=== PATIENT | male | born 1975 | race Two or more races ===

== ENCOUNTER 2017-07-30 09:06 | Emergency (ER) | payer BC ==
[2017-07-30 11:16] LABS: Hematocrit 40 % (42-52); Hemoglobin 13.1 g/dl (14.0-18.0); Mean Corpuscular HGB Conc 33 g/dl (31-36); Mean Corpuscular Hemoglobin 26 pg (27-31); Mean Corpuscular Volume 80 fL (80-94); Mean Platelet Volume 8 um3 (7.4-10.4); Red Cell Distribution Width 18 % (10.5-15); White Blood Count 7.5 10^3/ul (3.5-10.8)
[2017-07-30 11:32] LABS: Albumin 4.4 g/dL (3.2-5.2); C Reactive Protein 5.55 mg/L (< 5.00); Calcium 9.4 mg/dL (8.6-10.3); EGFR African American 97.5 (>60); EGFR Non-African American 75.8 (>60); Globulin 2.7 g/dL (2-4); Potassium 4.3 mmol/L (3.5-5.0); Total Bilirubin 0.2 mg/dL (0.2-1.0); Total Protein 7.1 g/dL (6.4-8.9)
[2017-07-30] MEDS ORDERED: Morphine INJ* 4 MG/ML 1 ML CARPUJECT IV ONE (11:56)
[2017-07-30] MEDS ORDERED: Ondansetron INJ* 2 MG/ML VIAL IV ONE (11:56)
[2017-07-30] MEDS ORDERED: Iohexol 300* (CONTRAST) 10 ML SDV IV ONE (13:47)
[2017-07-30 14:39] VITALS: BP 109/71
--- NOTE | 2017-07-30 14:42 | RAD ---
CLINICAL HISTORY: Hematochezia COMPARISON: Noncontrast CT abdomen pelvis dated October 15, 2011 TECHNIQUE: Contrast enhanced CT examination of the abdomen and pelvis from the lung bases through the initial tuberosities. The patient received 100 mL Omnipaque 300 intravenously prior to imaging.The patient received oral contrast as well prior to imaging. FINDINGS: VISUALIZED LUNG BASES: The visualized lung bases are grossly clear. There is no pleural effusion. ABDOMEN AND PELVIS: The liver, spleen, pancreas and adrenal glands are grossly normal in appearance. The gallbladder is normal. The kidneys are normal in appearance without focal mass, calcification or signs of hydronephrosis. Oral contrast has progressed to the descending colon. The proximal small bowel is top normal in diameter measuring up to 2.9 cm (coronal image 44). The small bowel becomes smaller as it progresses more distally but there is no definite focal transition point or pathologically dilated loops of bowel. The partially gas and contrast-filled appendix measures just over 4 mm in diameter (coronal image 41). There are scattered rectosigmoid diverticula but none exhibit focal inflammatory change. There is no retroperitoneal lymphadenopathy. Scattered mesenteric lymph nodes are seen measuring up to 9 mm in short axis diameter (coronal image 42) but none are pathologically enlarged. Top normal left inguinal lymph nodes are seen measuring up to 1 cm in short axis diameter (axial image 79). The pelvic viscera is normal in appearance. The abdominal aorta and iliac arteries are normal in course and diameter. There are no sinister bone lesions. IMPRESSION: 1. Top normal dilatation of proximal loops of small bowel without pathologic dilatation or focal transition point. This is in the presence of mild mesenteric lymphadenopathy. Mild infectious or inflammatory bowel disease could BE considered as a diagnostic possibility. 2. Top normal left inguinal lymph nodes are noted uncertain clinical significance. Please correlate to physical examination.
[2017-07-30 15:14] LABS: Urine Bilirubin Negative (Negative); Urine Glucose Negative (Negative); Urine Nitrite Negative (Negative)
[2017-07-30 15:44] LABS: Hematocrit 37 % (42-52); Hemoglobin 12.2 g/dl (14.0-18.0); Mean Corpuscular HGB Conc 33 g/dl (31-36); Mean Corpuscular Hemoglobin 26 pg (27-31); Mean Corpuscular Volume 79 fL (80-94); Mean Platelet Volume 9 um3 (7.4-10.4); Red Blood Count 4.71 10^6/ul (4.0-5.4); Red Cell Distribution Width 18 % (10.5-15); White Blood Count 7.9 10^3/ul (3.5-10.8)
[2017-07-30] MEDS ORDERED: NS 0.9% 1000 ML* 1,000 ML IV ONE (17:14)
[2017-07-30] MEDS ORDERED: HYDROcodone/ACETAMIN 5-325 MG* 1 TAB PO ONE (17:28)
--- NOTE | 2017-08-02 12:22 | ED ---
Santhosh Valerio Thomas, scribed for Yuri Becerra MD on 07/30/17 at 1249 . GI/ HPI - HPI Summary HPI Summary: The patient is a 41 y/o M c/o abd pain that began two days ago but worsened this AM at 03:00. He rates the pain 8/10 and he describes it as sharp. He also c /o bloody stools characterized as some BRB blood but also some clots. He describes his stools as completely blood and not bloody streaks. He had two episodes of vomiting this AM at about 04:00. He additionally c/o dizziness. He denies testicular pain and urinary symptoms. He reports recent prior sick contacts. PMHx: anxiety. PSHx: none. SHx: current smoker, occasional drinking. He is accompanied by his fiance. 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 - fiance is present Onset/Duration: Started Days Ago - onset of abd pain two days ago, Still Present , Worse Since - this AM at 04:00 Timing: Constant Severity: Severe Pain Intensity: 8 Pain Characteristics: Sharp Associated Signs and Symptoms: Positive: Dizziness, Vomiting - two episodes this AM, Blood w/Stool - BRB and clots, Other: - Abd pain onset two days ago but worse this AM at 04:00; NEGATIVE: urinary symptoms, testicular pain Aggravating Factor(s): Nothing Alleviating Factor(s): Nothing - Allergy/Home Medications Allergies/Adverse Reactions: Allergies Allergy/AdvReac Type Severity Reaction Status Date / Time Codeine Allergy Severe See Comment Verified 09/29/14 19:32 PMH/Surg Hx/FS Hx/Imm Hx Previously Healthy: No Endocrine/Hematology History: Denies: Hx Diabetes, Hx Thyroid Disease Cardiovascular History: Denies: Hx Hypertension, Hx Pacemaker/ICD Respiratory History: Denies: Hx Asthma, Hx Chronic Obstructive Pulmonary Disease (COPD) GI History: Reports: Hx Ulcer - possiability for peptic ulcers Sensory History: Denies: Hx Hearing Aid Psychiatric History: Reports: Hx Anxiety, Hx Panic Disorder - ANXIETY - Surgical History Surgery Procedure, Year, and Place: None Infectious Disease History: No Infectious Disease History: Denies: Hx Hepatitis, Hx Human Immunodeficiency Virus (HIV), Traveled Outside the [place] in Last 30 Days - Family History Known Family History: Positive: Other - Ulcerative colitis Negative: Hypertension, Diabetes - Social History Alcohol Use: Occasionally Hx Substance Use: No Substance Use Type: Reports: None Hx Tobacco Use: Yes Smoking Status (MU): Heavy Every Day Tobacco Smoker Type: Cigarettes Review of Systems Negative: Fever, Chills Negative: Erythema - eyes Negative: Sore Throat Negative: Chest Pain Negative: Shortness Of Breath, Cough Positive: Abdominal Pain - onset two days ago but worse this AM, Vomiting - two episodes of vomiting this AM at 04:00, Nausea, Other - Blood with stool onset this AM at 03:00 Positive: no symptoms reported. Negative: dysuria, hematuria, other - NEGATIVE : testicular pain Negative: Rash Neurological: Other - Dizziness All Other Systems Reviewed And Are Negative: Yes Physical Exam - Summary Physical Exam Summary: Constitutional: Well-developed, Well-nourished, Alert. (-) Distressed Skin: Warm, Dry HENT: Normocephalic; Atraumatic Eyes: Conjunctiva normal Neck: Musculoskeletal ROM normal neck. (-) JVD, (-) Stridor, (-) Tracheal deviation Cardio: Rhythm regular, rate normal, Heart sounds normal; Intact distal pulses; The pedal pulses are 2+ and symmetric. Radial pulses are 2+ and symmetric. (-) Murmur Pulmonary/Chest wall: Effort normal. (-) Respiratory distress, (-) Wheezes, (-) Rales Abd: There is mild RLQ and LLQ tenderness. Soft, (-) Distension, (-) Guarding, ( -) Rebound Musculoskeletal: (-) Edema Lymph: (-) Cervical adenopathy Neuro: Alert, Oriented x3 Psych: Mood and affect Normal Triage Information Reviewed: Yes Vital Signs On Initial Exam: Initial Vitals Temp Pulse Resp BP Pulse Ox 98.2 F 96 20 126/79 97 07/30/17 09:11 07/30/17 09:11 07/30/17 09:11 07/30/17 09:11 07/30/17 09:11 Vital Signs Reviewed: Yes Diagnostics - Vital Signs Vital Signs Temp Pulse Resp BP Pulse Ox 07/30/17 12:10 15 07/30/17 11:30 124/77 07/30/17 11:29 82 99 07/30/17 11:25 80 99 10/10/17 11:24 126/75 07/30/17 10:56 98.3 F 82 16 118/79 100 07/30/17 09:11 98.2 F 96 20 126/79 97 - Laboratory Lab Results: Lab Results 07/30/17 07/30/17 Range/Units 11:04 11:04 WBC 7.5 (3.5-10.8) 10^3/ul RBC 5.00 (4.0-5.4) 10^6/ul Hgb 13.1 L (14.0-18.0) g/dl Hct 40 L (42-52) % MCV 80 (80-94) fL MCH 26 L (27-31) pg MCHC 33 (31-36) g/dl RDW 18 H (10.5-15) % Plt Count 295 (150-450) 10^3/ul MPV 8 (7.4-10.4) um3 Neut % (Auto) 54.3 (38-83) % Lymph % (Auto) 36.6 (25-47) % [place] % (Auto) 7.5 (1-9) % Eos % (Auto) 1.3 (0-6) % Baso % (Auto) 0.3 (0-2) % Absolute Neuts (auto) 4.1 (1.5-7.7) 10^3/ul Absolute Lymphs (auto) 2.7 (1.0-4.8) 10^3/ul Absolute Monos (auto) 0.6 (0-0.8) 10^3/ul Absolute Eos (auto) 0.1 (0-0.6) 10^3/ul Absolute Basos (auto) 0 (0-0.2) 10^3/ul Absolute Nucleated RBC 0 10^3/ul Nucleated RBC % 0 Blood Type O Positive Antibody Screen Pending Result Diagrams: 07/30/17 15:30 07/30/17 11:04 Lab Statement: Any lab studies that have been ordered have been reviewed, and results considered in the medical decision making process. - CT CT Abd/Pel CT Interpretation: No Acute Changes - 1. Top normal dilatation of proximal loops of small bowel without pathologic dilatation or focal transition point. This is in the presence of mild mesenteric lymphadenopathy. Mild infectious or inflammatory bowel disease could BE considered as a diagnostic possibility. 2. Top normal left inguinal lymph nodes are noted uncertain clinical significance. Please correlate to physical examination. ED physician has reviewed this report and agrees. CT Interpretation Completed By: Radiologist Re-Evaluation - Re-Evaluation First Eval Re-Evaluation Time: 14:10 Change: Unchanged Comment: When I went to see the patient, he was in CT. Second Eval Re-Evaluation Time: 17:51 Comment: The patient says that he has a FHx of ulcerative in his sister since she was 2 years of age. I told him about the plans for admission d/t inability to see GI as an outpatient basis. He tells me that he will think about it. GIGU Course/Dx - Course Assessment/Plan: The patient is a 41 y/o M c/o abd pain that began two days ago but worsened this AM at 03:00. He rates the pain 8/10 and he describes it as sharp. He also c/o bloody stools that began this AM at 03:00 characterized as BRB blood as well as some clots. He describes stool composed completely of blood rather than only bloody streaks. He had two episodes of vomiting this AM at about 04:00. He additionally c/o dizziness. He denies testicular pain and urinary symptoms. He reports recent prior sick contacts. PMHx: anxiety. PSHx: none. SHx: current smoker, occasional drinking. He is accompanied by his fiance. In the ED course the patient was given Hargill, morphine, IV fluids, and Zofran. Bloodwork was obtained and it shows Hgb 13.1, Hct 40, and CRP 5.55. UA was negative. CT Abd/Pel shows 1. Top normal dilatation of proximal loops of small bowel without pathologic dilatation or. focal transition point. This is in the presence of mild mesenteric lymphadenopathy. Mild. infectious or inflammatory bowel disease could BE considered as a diagnostic possibility. 2. Top normal left inguinal lymph nodes are noted uncertain clinical significance. Please. correlate to physical examination. ED physician has reviewed this report and agrees. I consulted at 17:[address] Quinonez GI, who says that he recommends observation at the hospital for trending CBCs because it will be difficult to see the patient as an outpatient. The patient decided to leave [place]. Despite the patient leaving [place], I am giving him a prescription for Flagyl and Hargill. The Flagyl is prescribed in the case that the patients symptoms are secondary to colitis, ulcerative colitis, or infectious diarrhea. - Diagnoses Provider Diagnoses: Abdominal pain - Physician Notifications Discussed Care Of Patient With: Delmar Quinonez Time Discussed With Above Provider: 17:15 Instructed by Provider To: Other - I consulted at 17:[address] Quinonez, GI, who says that he recommends observation at the hospital for trending CBCs because it will be difficult to see the patient as an outpatient. Discharge - Discharge Plan Condition: Fair Disposition: AGAINST MEDICAL ADVICE Prescriptions: HYDROcodone/ACETAMIN 5-325 MG* [Hargill 5-325 TAB*] 1 tab PO Q6H PRN #12 tab MDD 0 PRN Reason: Pain - Moderate To Severe Metronidazole [Flagyl 500 MG TAB] 500 mg PO TID #30 tab Referrals: Delmar Quinonez MD [Medical Doctor] - As Soon As Possible The documentation as recorded by the Santhosh tong Thomas accurately reflects the service I personally performed and the decisions made by me, Yuri Becerra MD.
== END 2017-07-30 18:13 | disposition left against medical advice (07) ==
LOC: ED 09:06
DX: R10.9 Unspecified abdominal pain (principal); R42 Dizziness and giddiness; R11.10 Vomiting, unspecified; F17.210 Nicotine dependence, cigarettes, uncomplicated
CPT/HCPCS: 36415; 74177; 80053; 81003; 83605; 83690; 85025; 85027; 86140; 86850; 86900; 86901; 96374; 96375; 99283; J2270; J2405; Q9967

== ENCOUNTER 2017-11-25 09:08 | Emergency (ER) | payer BC ==
[2017-11-25] MEDS ORDERED: NS 0.9% 1000 ML* 1,000 ML IV ONE (09:40)
[2017-11-25] MEDS ORDERED: Morphine INJ* 4 MG/ML 1 ML CARPUJECT IV ONE ×2 (09:40→11:47)
[2017-11-25 10:18] LABS: Hematocrit 30 % (42-52); Hemoglobin 8.9 g/dl (14.0-18.0); Mean Corpuscular HGB Conc 29 g/dl (31-36); Mean Corpuscular Hemoglobin 18 pg (27-31); Mean Corpuscular Volume 60 fL (80-94); Mean Platelet Volume 8 um3 (7.4-10.4); Platelet Count 567 10^3/ul (150-450); Red Blood Count 5.02 10^6/ul (4.0-5.4); Red Cell Distribution Width 18 % (10.5-15); White Blood Count 7.9 10^3/ul (3.5-10.8)
[2017-11-25 10:23] LABS: EGFR Non-African American 35.2 (>60)
[2017-11-25 10:35] LABS: Urine Appearance Clear; Urine Blood Negative (Negative); Urine Color Straw; Urine Ketones Negative (Negative); Urine Protein Negative (Negative); Urine Specific Gravity 1.004 (1.010-1.030); Urine Urobilinogen Negative (Negative)
[2017-11-25] MEDS ORDERED: Iodixanol* (CONTRAST) 320 MG/ML 100 ML SDV IV ONE ×2 (10:42)
[2017-11-25 10:53] LABS: ABS Basophils 0 10^3/ul (0-0.2); ABS Eosinophils 0.2 10^3/ul (0-0.6); ABS Lymphocytes 2.7 10^3/ul (1.0-4.8); ABS Monocytes 0.6 10^3/ul (0-0.8); ABS Neutrophils 4.4 10^3/ul (1.5-7.7); ABS Nucleated RBC 0 10^3/ul; Eosinophil % 2.6 % (0-6); Lymphocyte % 34.2 % (25-47); Nucleated Red Blood Cells % 0.1
[2017-11-25 11:26] LABS: Monocytes % 14 % (0-13)
--- NOTE | 2017-11-25 12:23 | RAD ---
INDICATION: Abdominal pain COMPARISON: CT abdomen and pelvis July 30, 2017; CT October 15, 2011 TECHNIQUE: Axial source images were obtained from the hemidiaphragms to the symphysis pubis following administration of oral and intravenous contrast. 100 mL Visipaque 320 was utilized. Coronal and sagittal reconstructed images were acquired. Lung bases: The lung bases are clear. Liver: The liver is normal in size. There are no masses. There is no ductal dilatation. Gallbladder: There are no calcified gallstones. There is no evidence of wall thickening or pericholecystic fluid. Spleen: The spleen is normal in size. There are no masses. Pancreas: There is no focal pancreatic mass or ductal dilatation. Adrenal glands: There is no evidence of adrenal mass. Kidneys: The kidneys are normal in size and position. There are prompt nephrograms and there is prompt excretion bilaterally. There are no renal parenchymal masses. There is no evidence of nephrolithiasis. Adenopathy: There is no evidence of adenopathy by size criteria. Fluid collections: There are no free or localized fluid collections. Vessels:There are no significant atherosclerotic changes involving the aorta. There is no focal aneurysm. The iliac vessels are normal in caliber. The IVC appears normal. GI tract: There are no acute CT bowel findings. There is no obstruction. The stomach and small bowel appear unchanged with atonic appearing proximal jejunal loops without evidence of identifiable zone of transition. This is stable dating back to 2010. The lower GI tract is normal. The cecum, ileocecal valve, and terminal ileum appear normal. The appendix is visualized and appear normal. Pelvic organs: The prostate and seminal vesicles appear normal Bladder: There are no bladder masses. Abdominal and pelvic soft tissues: The extraperitoneal abdominal and pelvic soft tissues appear normal.. Osseous structures: There are no acute osseous findings. Other: None IMPRESSION: ACUTE CT FINDINGS. NO MASS OR INFLAMMATORY CHANGES. STABLE ATONIC APPEARING JEJUNAL LOOPS UNCHANGED FROM PRIOR IMAGING
[2017-11-25] MEDS ORDERED: Nicotine Inhaler* 10 MG AMP INH PRN (13:55)
[2017-11-25] MEDS ORDERED: Mouth Piece, Nicotine* 1 EACH CARTRIDGE INH PRN (13:55)
[2017-11-25] MEDS ORDERED: Ferrous Sulfate TAB* 325 MG PO SCH (14:00)
[2017-11-25] MEDS ORDERED: Acetaminophen TAB* 325 MG PO PRN (14:08)
[2017-11-25] MEDS ORDERED: NS 0.9% 1000 ML* 1,000 ML IV SCH (14:15)
--- NOTE | 2017-11-25 14:15 | PN ---
Subjective Date of Service: 11/25/17 Interval History: ADMISSION HISTORY AND PHYSICAL EXAM: Allergies Allergy/AdvReac Type Severity Reaction Status Date / Time MS Codeine [Codeine] Allergy Severe See Comment Verified 08/21/17 16:03 Home Medications Medication Instructions Recorded Confirmed Type Escitalopram (NF) [Lexapro 10 mg 15 mg PO DAILY 11/25/17 11/25/17 History (NF)] Gabapentin CAP(*) [Neurontin 300 300 mg PO QID PRN 11/25/17 11/25/17 History CAP(*)] Multivitamins/Minerals TAB* [Thera 1 tab PO DAILY 11/25/17 11/25/17 History M Plus TAB*] HPI: The patient was in his usual state of health until 7 PM 11/24 when he developed lower abdominal pain At 9 PM he started having rectal passages of blood. He had a brown BM this AM with blood on it. No N,V. He has been going to the gym more often recently and sometimes uses ibuprofen 400 mg for pain, also uses it for chronic back pain, and using it more lately than in the past. ROS: 12 point ROS done with no additional positive findings. Family History: Findings - Parents, 6 sibs all [employer]. Social History: Findings - Single. 5 children. 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 Mary Keene is his SDM. Smoker. No alcohol abuse. Past Medical History: Findings - Hospitalized for peumonia age 4. Objective Active Medications: Device (Nicotine Mouth Piece*) 1 each INH .USE WITH NICOTROL PRN PRN Reason: CRAVING Escitalopram Oxalate (Lexapro (Nf)) 15 mg PO DAILY CORINNE Ferrous Sulfate (Ferrous Sulfate Tab*) 325 mg PO DAILY CORINNE Sodium Chloride (Ns 0.9% 1000 Ml*) 1,000 mls @ 100 mls/hr IV PER RATE CORINNE Nicotine (Nicotine Inhaler*) 10 mg INH Q2H PRN PRN Reason: CRAVING Vital Signs - 8 hr 11/25/17 11/25/17 11/25/17 09:13 10:03 10:06 Temperature 98.8 F Pulse Rate 101 Respiratory 20 18 Rate Blood Pressure 167/89 141/93 (mmHg) O2 Sat by Pulse 100 Oximetry 11/25/17 11/25/17 11/25/17 10:07 11:26 11:27 Temperature Pulse Rate 93 84 Respiratory Rate Blood Pressure 147/82 (mmHg) O2 Sat by Pulse 98 98 Oximetry 11/25/17 11/25/17 11:30 12:26 Temperature Pulse Rate 85 Respiratory 16 Rate Blood Pressure 142/76 (mmHg) O2 Sat by Pulse 98 Oximetry Oxygen Devices in Use Now: None Appearance: Alert, partly up on ED stretcher. In good spirits. Looks comfortable. Eyes: No Scleral Icterus Ears/Nose/Mouth/Throat: Clear Oropharnyx, Mucous Membranes Moist Neck: NL Appearance and Movements; NL JVP, No Thyroid Enlargement, Masses Respiratory: Symmetrical Chest Expansion and Respiratory Effort, Clear to Auscultation, Clear to Percussion Cardiovascular: NL Sounds; No Murmurs; No JVD, RRR, No Edema, - Abdominal: No Hepatosplenomegaly, - - minimal lower abd tenderness BL. Nl BS. Soft. Extremities: No Edema, No Clubbing, Cyanosis, - Skin: No Rash or Ulcers, No Nodules or Sclerosis, - Neurological: Alert and Oriented x 3, NL Sensation Result Diagrams: 11/25/17 10:00 11/25/17 10:00 Microbiology and Other Data: Microbiology 11/25/17 09:40 Stool Occult Blood (MILLER) - Final Stool Assess/Plan/Problems-Billing Assessment: - Patient Problems (1) GI bleed Current Visit: Yes Status: Acute Code(s): K92.2 - GASTROINTESTINAL HEMORRHAGE, UNSPECIFIED SNOMED Code(s): 62053106 Comment: Likely due to hemorrhoids. I spoke to Dr. Hermosillo who will see the patient in the AM. (2) Iron deficiency anemia Current Visit: Yes Status: Acute Code(s): D50.9 - IRON DEFICIENCY ANEMIA, UNSPECIFIED SNOMED Code(s): 10358244 Comment: Start FeSO4 325 mg daily. CBC 11/26. (3) Elevated serum creatinine Current Visit: Yes Status: Acute Code(s): R79.89 - OTHER SPECIFIED ABNORMAL FINDINGS OF BLOOD CHEMISTRY SNOMED Code(s): 958086189 Comment: Suspect due to NSAIDS. IV NSS at 100 ml/hr, BMP 2/. Pt advisd to NOT use any NSAIDS. (4) Tobacco abuse Current Visit: Yes Status: Acute Code(s): Z72.0 - TOBACCO USE SNOMED Code( s): 481907314 Comment: Pt advised to quit smoking and avoid second hand smoke. Nicotine inhaler PRN ordered. Status and Disposition: Patient signed out AMA while in the ED.
[2017-11-25] MEDS ORDERED: Omeprazole CAP* 20 MG PO SCH (14:30)
[2017-11-25 15:10] VITALS: BP 0/0
[2017-11-26] MEDS ORDERED: CMCS Escitalopram (NF) 5 MG TAB PO SCH (09:00)
--- NOTE | 2017-11-26 09:28 | ED ---
Michael Valerio Angela, scribed for Chandler Concepcion MD on 11/25/17 at 0941 . Abdominal Pain/Male - HPI Summary HPI Summary: This pt is a 41 y/o male presenting to [facility] c/o lower abd pain and bloody stools since last night. Pt reports his symptoms have become worse overnight. He describes his abd pain as "knives on my abd." Pt rates his pain currently 9/ 10 in severity. This morning pt had nausea and generalized weakness. Denies constipation, vomiting. Pt was told he might have peptic ulcers but it was not confirmed. Pt is currently on Lexapro for anxiety. - History of Current Complaint Chief Complaint: EDAbdPain Stated Complaint: ABD PAIN/RECTAL BLEEDING Time Seen by Provider: 11/25/17 09:34 Hx Obtained From: Patient Onset/Duration: Lasting Hours, Still Present Timing: Lasting Hours Severity Currently: Severe Pain Intensity: 9 Pain Scale Used: 0-10 Numeric Location: Suprapubic Radiates: No Character: Sharp - "like knives" Aggravating Factor(s): Nothing Alleviating Factor(s): Nothing Associated Signs And Symptoms: Positive: Blood in Stool, Nausea, Other - weakness. Negative: Constipation, Vomiting, Diarrhea - Allergies/Home Medications Allergies/Adverse Reactions: Allergies Allergy/AdvReac Type Severity Reaction Status Date / Time codeine Allergy Severe See Comment Verified 11/25/17 14:14 Home Medications: Home Medications Escitalopram (NF) [Lexapro 10 mg (NF)] 15 mg PO DAILY 11/25/17 [History Confirmed 11/25/17] Gabapentin CAP(*) [Neurontin 300 CAP(*)] 300 mg PO QID PRN 11/25/17 [History Confirmed 11/25/17] Multivitamins/Minerals TAB* [Thera M Plus TAB*] 1 tab PO DAILY 11/25/17 [ History Confirmed 11/25/17] PMH/Surg Hx/FS Hx/Imm Hx Endocrine/Hematology History: Denies: Hx Diabetes, Hx Thyroid Disease Cardiovascular History: Denies: Hx Hypertension, Hx Pacemaker/ICD Respiratory History: Denies: Hx Asthma, Hx Chronic Obstructive Pulmonary Disease (COPD) GI History: Reports: Hx Ulcer - possiability for peptic ulcers Sensory History: Denies: Hx Hearing Aid Psychiatric History: Reports: Hx Anxiety, Hx Panic Disorder - ANXIETY - Surgical History Surgery Procedure, Year, and Place: None Infectious Disease History: No Infectious Disease History: Denies: Hx Hepatitis, Hx Human Immunodeficiency Virus (HIV), Traveled Outside the [place] in Last 30 Days - Family History Known Family History: Positive: Diabetes - grandmother, Other - Ulcerative colitis Negative: Hypertension - Social History Alcohol Use: Occasionally Hx Substance Use: No Substance Use Type: Reports: None Hx Tobacco Use: Yes Smoking Status (MU): Heavy Every Day Tobacco Smoker Type: Cigarettes Review of Systems Negative: Fever, Chills Gastrointestinal: Other - bloody stools Positive: Abdominal Pain, Nausea. Negative: Vomiting, Diarrhea, Other - constipation Positive: Weakness - generalized All Other Systems Reviewed And Are Negative: Yes Physical Exam - Summary Physical Exam Summary: VITAL SIGNS: Reviewed. GENERAL: Patient is a well-developed and nourished male who is lying comfortable in the stretcher. Patient is not in any acute respiratory distress. HEAD AND FACE: Normocephalic and atraumatic. EYES: PERRLA, EOMI x 2, No injected conjunctiva. EARS: Hearing grossly intact. Ear canals and tympanic membranes are WNL. MOUTH: Oropharynx within normal limits. NECK: Supple, trachea is midline, no adenopathy, no JVD. CHEST: Symmetric, no tenderness at palpation LUNGS: Clear to auscultation bilaterally. No wheezing or crackles. CVS: RRR, S1 and S2 present, no murmurs or gallops appreciated. ABDOMEN: Soft. Lower abdominal tenderness with guarding. No rebound. No signs of distention. Positive bowel sounds. No masses palpated. No abdominal bruit or pulsations. Rectal Exam: Multiple external hemorrhoids. Normal sphincter tone. No gross blood. EXTREMITIES: FROM in all major joints, no edema, no cyanosis or clubbing. NEURO: Alert and oriented x 3. No acute neurological deficits. Speech is normal. SKIN: Dry and warm Triage Information Reviewed: Yes Vital Signs On Initial Exam: Initial Vitals Temp Pulse Resp BP Pulse Ox 98.8 F 101 20 167/89 100 11/25/17 09:13 11/25/17 09:13 11/25/17 09:13 11/25/17 09:13 11/25/17 09:13 Vital Signs Reviewed: Yes Diagnostics - Vital Signs Vital Signs Temp Pulse Resp BP Pulse Ox 11/25/17 09:13 98.8 F 101 20 167/89 100 - Laboratory Lab Results: Lab Results 11/25/17 11/25/17 11/25/17 Range/Units 10:00 10:00 10:00 WBC 7.9 (3.5-10.8) 10^3/ul RBC 5.02 (4.0-5.4) 10^6/ul Hgb 8.9 L (14.0-18.0) g/dl Hct 30 L (42-52) % MCV 60 L (80-94) fL MCH 18 L (27-31) pg MCHC 29 L (31-36) g/dl RDW 18 H (10.5-15) % Plt Count 567 H (150-450) 10^3/ul MPV 8 (7.4-10.4) um3 Neut % (Auto) 55.2 (38-83) % Lymph % (Auto) 34.2 (25-47) % Nolan % (Auto) 7.4 (1-9) % Eos % (Auto) 2.6 (0-6) % Baso % (Auto) 0.6 (0-2) % Absolute Neuts (auto) 4.4 (1.5-7.7) 10^3/ul Absolute Lymphs (auto) 2.7 (1.0-4.8) 10^3/ul Absolute Monos (auto) 0.6 (0-0.8) 10^3/ul Absolute Eos (auto) 0.2 (0-0.6) 10^3/ul Absolute Basos (auto) 0 (0-0.2) 10^3/ul Absolute Nucleated RBC 0 10^3/ul Neutrophils % 56 (38-83) % Lymphocytes % 27 (25-47) % Monocytes % 14 H (0-13) % Eosinophils % 3 (0-6) % Nucleated RBC % 0.1 Normal RBC Morphology Not Reportable Polychromasia 1+ Hypochromasia 2+ Anisocytosis 1+ Microcytosis 3+ Elliptocytes 1+ Hem Pathologist Commnt Pending Sodium 135 (133-145) mmol/L Potassium 4.3 (3.5-5.0) mmol/L Chloride 103 (101-111) mmol/L Carbon Dioxide 27 (22-32) mmol/L Anion Gap 5 (2-11) mmol/L BUN 17 (6-24) mg/dL Creatinine 2.08 H (0.67-1.17) mg/dL Est GFR ( Amer) 45.3 (>60) Est GFR (Non-Af Amer) 35.2 (>60) BUN/Creatinine Ratio 8.2 (8-20) Glucose 133 H (70-100) mg/dL Lactic Acid 1.3 (0.5-2.0) mmol/L Calcium 9.6 (8.6-10.3) mg/dL Total Bilirubin 0.20 (0.2-1.0) mg/dL AST 20 (13-39) U/L ALT 25 (7-52) U/L Alkaline Phosphatase 35 (34-104) U/L C-Reactive Protein < 1.00 (< 5.00) mg/L Total Protein 6.4 (6.4-8.9) g/dL Albumin 4.1 (3.2-5.2) g/dL Globulin 2.3 (2-4) g/dL Albumin/Globulin Ratio 1.8 (1-3) Lipase 54 (11.0-82.0) U/L Urine Color Urine Appearance Urine pH (5-9) Ur Specific [place] (1.010-1.030) Urine Protein (Negative) Urine Ketones (Negative) Urine Blood (Negative) Urine Nitrate (Negative) Urine Bilirubin (Negative) Urine Urobilinogen (Negative) Ur Leukocyte Esterase (Negative) Urine Glucose (Negative) 11/25/17 Range/Units 10:25 WBC (3.5-10.8) 10^3/ul RBC (4.0-5.4) 10^6/ul Hgb (14.0-18.0) g/dl Hct (42-52) % MCV (80-94) fL MCH (27-31) pg MCHC (31-36) g/dl RDW (10.5-15) % Plt Count (150-450) 10^3/ul MPV (7.4-10.4) um3 Neut % (Auto) (38-83) % Lymph % (Auto) (25-47) % Nolan % (Auto) (1-9) % Eos % (Auto) (0-6) % Baso % (Auto) (0-2) % Absolute Neuts (auto) (1.5-7.7) 10^3/ul Absolute Lymphs (auto) (1.0-4.8) 10^3/ul Absolute Monos (auto) (0-0.8) 10^3/ul Absolute Eos (auto) (0-0.6) 10^3/ul Absolute Basos (auto) (0-0.2) 10^3/ul Absolute Nucleated RBC 10^3/ul Neutrophils % (38-83) % Lymphocytes % (25-47) % Monocytes % (0-13) % Eosinophils % (0-6) % Nucleated RBC % Normal RBC Morphology Polychromasia Hypochromasia Anisocytosis Microcytosis Elliptocytes Hem Pathologist Commnt Sodium (133-145) mmol/L Potassium (3.5-5.0) mmol/L Chloride (101-111) mmol/L Carbon Dioxide (22-32) mmol/L Anion Gap (2-11) mmol/L BUN (6-24) mg/dL Creatinine (0.67-1.17) mg/dL Est GFR ( Amer) (>60) Est GFR (Non-Af Amer) (>60) BUN/Creatinine Ratio (8-20) Glucose (70-100) mg/dL Lactic Acid (0.5-2.0) mmol/L Calcium (8.6-10.3) mg/dL Total Bilirubin (0.2-1.0) mg/dL AST (13-39) U/L ALT (7-52) U/L Alkaline Phosphatase (34-104) U/L C-Reactive Protein (< 5.00) mg/L Total Protein (6.4-8.9) g/dL Albumin (3.2-5.2) g/dL Globulin (2-4) g/dL Albumin/Globulin Ratio (1-3) Lipase (11.0-82.0) U/L Urine Color Straw Urine Appearance Clear Urine pH 7.0 (5-9) Ur Specific [place] 1.004 L (1.010-1.030) Urine Protein Negative (Negative) Urine Ketones Negative (Negative) Urine Blood Negative (Negative) Urine Nitrate Negative (Negative) Urine Bilirubin Negative (Negative) Urine Urobilinogen Negative (Negative) Ur Leukocyte Esterase Negative (Negative) Urine Glucose Negative (Negative) Result Diagrams: 11/25/17 10:00 11/25/17 10:00 Lab Statement: Any lab studies that have been ordered have been reviewed, and results considered in the medical decision making process. - CT CT abdomen/pelvis CT Interpretation: Positive (See Comments) - IMPRESSION: Acute CT findings, no mass or inflammatory changes. 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 Dr. Concepcion has reviewed this radiology report. CT Interpretation Completed By: Radiologist - EKG 09:42 Cardiac Rate: NL EKG Rhythm: Sinus Rhythm - at 90 bpm EKG Interpretation: No ST elevation Re-Evaluation - Re-Evaluation First Eval Re-Evaluation Time: 12:50 Comment: I reviewed the CT results with the pt. Pt reports he is feeling better and his pain has decreased to a 1/10. Abdominal Pain Fem Course/Dx - Course Assessment/Plan: This pt is a 41 y/o male presenting to [facility] c/o lower abd pain and bloody stools since last night. Pt reports his symptoms have become worse overnight. He describes his abd pain as "knives on my abd." Pt rates his pain currently 9/10 in severity. This morning pt had nausea and generalized weakness. Denies constipation, vomiting. Pt was told he might have peptic ulcers but it was not confirmed. Pt is currently on Lexapro for anxiety. Test results show slight anemia, hemoglobin of 8.9, hematocrit of 30, which is new for this pt. The pt also has acute renal failure, creatinine of 2.08. Urinalysis is negative for UTI. Abdomen/Pelvis CT shows acute CT findings, no mass or inflammatory changes. 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 In the ED course, I gave the pt IV fluids and morphine for the pain, but the pt continues to have pain. Therefore I discussed the case with Dr. Garza, hospitalist, who accepted the pt for admission. Before the pt went to the floor, he decided to sign out AMA. I had a long discussion with the pt about the risks and benefits of leaving AMA, however he still decided to sign the form. Pt ambulated out of the ED. - Diagnoses Differential Diagnosis/HQI/PQRI: Appendicitis, Bowel Obstruction, Constipation, Diverticulitis, Renal Colic Provider Diagnoses: Abdominal pain, Acute renal failure, Symptomatic anemia, GI bleed - Provider Notifications Discussed Care Of Patient With: Dino Garza Time Discussed With Above Provider: 12:47 Instructed by Provider To: Other - I discussed pt care with Dr. Garza, hospitalist, who has agreed to admit the pt. Discharge - Discharge Plan Condition: Stable Disposition: AGAINST MEDICAL ADVICE The documentation as recorded by the Michael tong Angela accurately reflects the service I personally performed and the decisions made by , Chandlre Concepcion MD.
== END 2017-11-25 15:08 | disposition left against medical advice (07) ==
LOC: ED 09:08 → UNDOADMOB 13:18 → MED 13:18 → ED 15:08
DX: K92.2 Gastrointestinal hemorrhage, unspecified (principal); D50.9 Iron deficiency anemia, unspecified; R79.89 Other specified abnormal findings of blood chemistry; F17.210 Nicotine dependence, cigarettes, uncomplicated; Z53.21 Procedure and treatment not carried out due to patient leaving prior to being seen by health care provider; Z88.5 Allergy status to narcotic agent
CPT/HCPCS: 36415; 74177; 80053; 81003; 82272; 83605; 83690; 85025; 85060; 86140; 93005; 96360; 96374; 96375; 96376; 99285; J2270; Q9967

== ENCOUNTER 2017-12-23 08:41 | Emergency (ER) | payer BC ==
[2017-12-23] MEDS ORDERED: NS 0.9% 1000 ML* 1,000 ML IV ONE (09:02)
[2017-12-23 09:43] LABS: ABS Basophils 0 10^3/ul (0-0.2); ABS Eosinophils 0.3 10^3/ul (0-0.6); ABS Lymphocytes 1.8 10^3/ul (1.0-4.8); ABS Monocytes 0.4 10^3/ul (0-0.8); ABS Neutrophils 2.8 10^3/ul (1.5-7.7); ABS Nucleated RBC 0 10^3/ul; Eosinophil % 6.2 % (0-6); Hematocrit 35 % (42-52); Lymphocyte % 33.3 % (25-47); Mean Corpuscular HGB Conc 29 g/dl (31-36); Mean Corpuscular Hemoglobin 17 pg (27-31); Mean Corpuscular Volume 59 fL (80-94); Mean Platelet Volume 9 um3 (7.4-10.4); Nucleated Red Blood Cells % 0.1; Platelet Count 486 10^3/ul (150-450); Red Blood Count 5.92 10^6/ul (4.0-5.4); Red Cell Distribution Width 19 % (10.5-15); White Blood Count 5.5 10^3/ul (3.5-10.8)
[2017-12-23 09:47] LABS: Urine Appearance Clear; Urine Blood Negative (Negative); Urine Color Yellow; Urine Ketones Negative (Negative); Urine Protein 1+(30 mg/dL) (Negative); Urine Specific Gravity 1.014 (1.010-1.030); Urine Urobilinogen Negative (Negative)
[2017-12-23 09:52] LABS: EGFR Non-African American 72.3 (>60)
--- NOTE | 2017-12-23 09:56 | RAD ---
CLINICAL HISTORY: Flank pain COMPARISON: November 25, 2017 TECHNIQUE: Multiple contiguous axial CT scans were obtained of the abdomen and pelvis, without intravenous contrast enhancement. Coronal and sagittal multiplanar reformations are submitted for review. Oral contrast was not administered. FINDINGS: The study is limited by the lack of intravenous contrast. This limits evaluation of the solid organs and vasculature. LUNG BASES: The lung bases are clear. LIVER: The liver is normal in shape, size, contour, and attenuation. BILE DUCTS: There is no intrahepatic or extrahepatic biliary dilatation. GALLBLADDER: The gallbladder is normal, without pericholecystic inflammatory change. PANCREAS: The pancreas is normal, without mass or ductal dilatation. SPLEEN: Normal in size and appearance. UPPER GI TRACT: Evaluation of the gastrointestinal tract is limited by incomplete gastric distention. The upper GI tract is unremarkable. SMALL BOWEL AND MESENTERY: The small bowel is normal in contour, course, and caliber. There is no obstruction or dilatation. COLON: The colon is normal in contour, course, caliber. There is no pericolonic inflammatory change. There is a tubular, vermiform, hollow viscus that is blind ending, and originates from the cecum, consistent with a normal appendix. There is no periappendiceal inflammatory change. This is best seen on coronal images 38 through 45. ADRENALS: Normal bilaterally. KIDNEYS: There is a punctate nonobstructing right renal calyceal stone measuring 0.2 cm in size in the lower pole of the right kidney. Elsewhere, there is no hydronephrosis or nephrolithiasis. BLADDER: The bladder is smooth in contour. PELVIC ORGANS: The prostate gland is normal. The seminal vesicles are symmetric. AORTA: The aorta is normal. IVC: Unremarkable LYMPH NODES: There is no lymphadenopathy by size criteria. ABDOMINAL WALL: There is no evidence for abdominal wall hernia. BONES AND SOFT TISSUES: Mild degenerative changes are noted. There is partial lumbarization of the S1 vertebral body. OTHER: None IMPRESSION: PUNCTATE NONOBSTRUCTING RIGHT RENAL CALYCEAL STONE.
[2017-12-23] MEDS ORDERED: Morphine INJ* 4 MG/ML 1 ML SYRINGE (NEW SYRINGE VERSION) IV ONE (10:14)
[2017-12-23 10:31] VITALS: BP 149/85
--- NOTE | 2017-12-24 16:13 | ED ---
Michael Valerio Angela, scribed for Chandler Concepcion MD on 12/23/17 at 0904 . GI/ HPI - HPI Summary HPI Summary: This pt is a 42 y/o male presenting to [facility] c/o bilateral flank pain worsening since yesterday. Pt reports he has had intermittent bilateral flank pain for "a while." He rates his pain 7.5 out of 10 in severity while at rest. Pt notes his pain is aggravated with movement, rating it 10/10 in severity. Pt states he was in the ED for the same symptoms 1 month ago and was going to be admitted but signed out AMA. He notes he was diagnosed with acute renal failure. Pt followed up with his PCP but didn't have repeat blood work done. - History of Current Complaint Chief Complaint: EDUrogenitalProblems Time Seen by Provider: 12/23/17 08:51 Stated Complaint: FLANK PAIN Hx Obtained From: Patient Onset/Duration: Started Weeks Ago, Still Present Timing: Lasting Weeks Severity: Worse Since: - yesterday Current Severity: Severe Pain Intensity: 8 - at rest Location of Pain: Flank - bilateral Associated Signs and Symptoms: Positive: Other: - urinary frequency Aggravating Factor(s): Movement Alleviating Factor(s): Nothing - Allergy/Home Medications Allergies/Adverse Reactions: Allergies Allergy/AdvReac Type Severity Reaction Status Date / Time codeine Allergy Severe See Comment Verified 11/25/17 14:14 Home Medications: Home Medications traZODone TAB* [Desyrel TAB*] 50 mg PO BEDTIME 12/23/17 [History Confirmed 12/23] PMH/Surg Hx/FS Hx/Imm Hx Endocrine/Hematology History: Denies: Hx Diabetes, Hx Thyroid Disease Cardiovascular History: Denies: Hx Hypertension, Hx Pacemaker/ICD Respiratory History: Denies: Hx Asthma, Hx Chronic Obstructive Pulmonary Disease (COPD) GI History: Reports: Hx Ulcer - possiability for peptic ulcers History: Denies: Hx Renal Disease Sensory History: Denies: Hx Hearing Aid Psychiatric History: Reports: Hx Anxiety, Hx Panic Disorder - ANXIETY - Surgical History Surgery Procedure, Year, and Place: None Infectious Disease History: No Infectious Disease History: Denies: Hx Hepatitis, Hx Human Immunodeficiency Virus (HIV), Traveled Outside the [place] in Last 30 Days - Family History Known Family History: Positive: Diabetes - grandmother, Other - Ulcerative colitis Negative: Hypertension - Social History Alcohol Use: Occasionally Hx Substance Use: No Substance Use Type: Reports: None Hx Tobacco Use: Yes Smoking Status (MU): Heavy Every Day Tobacco Smoker Type: Cigarettes Review of Systems Negative: Fever, Chills Eyes: Negative ENT: Negative Cardiovascular: Negative Respiratory: Negative Positive: frequency, flank pain - bilateral All Other Systems Reviewed And Are Negative: Yes Physical Exam - Summary Physical Exam Summary: VITAL SIGNS: Reviewed. GENERAL: Patient is a well-developed and nourished male who is lying comfortable in the stretcher. Patient is not in any acute respiratory distress. HEAD AND FACE: No signs of trauma. No ecchymosis, hematomas or skull depressions. No sinus tenderness. EYES: PERRLA, EOMI x 2, No injected conjunctiva, no nystagmus. EARS: Hearing grossly intact. Ear canals and tympanic membranes are within normal limits. MOUTH: Oropharynx within normal limits. NECK: Supple, trachea is midline, no adenopathy, no JVD, no carotid bruit, no c- spine tenderness, neck with full ROM. CHEST: Symmetric, no tenderness at palpation LUNGS: Clear to auscultation bilaterally. No wheezing or crackles. CVS: Regular rate and rhythm, S1 and S2 present, no murmurs or gallops appreciated. ABDOMEN: Soft. No signs of distention. No rebound no guarding, and no masses palpated. Bowel sounds are normal. Bilateral flank tenderness. EXTREMITIES: FROM in all major joints, no edema, no cyanosis or clubbing. NEURO: Alert and oriented x 3. No acute neurological deficits. Speech is normal and follows commands. SKIN: Dry and warm PSYCH: A little bit anxious and nervous. Triage Information Reviewed: Yes Vital Signs On Initial Exam: Initial Vitals Temp Pulse Resp BP Pulse Ox 98.0 F 109 16 141/76 99 12/23/17 08:43 12/23/17 08:43 12/23/17 08:43 12/23/17 08:43 12/23/17 08:43 Vital Signs Reviewed: Yes Diagnostics - Vital Signs Vital Signs Temp Pulse Resp BP Pulse Ox 12/23/17 08:43 98.0 F 109 16 141/76 99 - Laboratory Result Diagrams: 12/23/17 09:20 12/23/17 09:20 Lab Statement: Any lab studies that have been ordered have been reviewed, and results considered in the medical decision making process. - CT Abdomen/Pelvis CT CT Interpretation: Positive (See Comments) - IMPRESSION: Punctate nonobstructing right renal calyceal stone. Dr. Concepcion has reviewed this radiology report. CT Interpretation Completed By: Radiologist Re-Evaluation - Re-Evaluation First Eval Re-Evaluation Time: 10:27 Comment: I reviewed the CT and lab results with the pt. GIGU Course/Dx - Course Assessment/Plan: This pt is a 42 y/o male presenting to [facility] c/o bilateral flank pain worsening since yesterday. Pt reports he has had intermittent bilateral flank pain for "a while." He rates his pain 7.5 out of 10 in severity while at rest. Pt notes his pain is aggravated with movement, rating it 10/10 in severity. Pt states he was in the ED for the same symptoms 1 month ago and was going to be admitted but signed out AMA. He notes he was diagnosed with acute renal failure. Pt followed up with his PCP but didn't have repeat blood work done. Test results without any significant abnormalities except for chronic microcytic hypochromic anemia possibly secondary to iron deficiency anemia. Urinalysis is negative for UTI. In the ED course the pt was given IV fluids and morphine since the pt has low back pain. Abdomen/Pelvis CT shows punctate nonobstructing right renal calyceal stone. Since there is no abdominal pain and no UTI, the pt will be discharged to home with follow up from his PCP. The pt was given a prescription for ferrous sulfate. Pt is hemodynamically stable, alert and oriented x3. - Diagnoses Provider Diagnoses: Lower back pain, Iron deficiency anemia Discharge - Discharge Plan Condition: Stable Disposition: HOME Prescriptions: Ferrous Sulfate TAB* 325 mg PO DAILY #15 tab Patient Education Materials: Acute Low Back Pain (ED) Forms: *Work Release Referrals: Kim Wilkins NP [Primary Care Provider] - 3 Days Additional Instructions: Please follow up with your primary care provider. RETURN TO THE ED FOR ANY WORSENING SYMPTOMS. The documentation as recorded by the Michael tong Angela accurately reflects the service I personally performed and the decisions made by , Chandler Concepcion MD.
== END 2017-12-23 10:37 | disposition home or self-care (01) ==
LOC: ED 08:41
DX: N20.0 Calculus of kidney (principal); M54.5 Low back pain; D50.9 Iron deficiency anemia, unspecified; Z88.5 Allergy status to narcotic agent
CPT/HCPCS: 36415; 74176; 80053; 80061; 81003; 81015; 82150; 82550; 83690; 83880; 85025; 86140; 87086; 96374; 99282; J2270

== ENCOUNTER 2018-01-06 08:34 | Emergency (ER) | payer BC ==
[2018-01-06] MEDS ORDERED: NS 0.9% 1000 ML* 2,000 ML IV ONE (09:04)
[2018-01-06] MEDS ORDERED: Morphine INJ* 4 MG/ML 1 ML SYRINGE (NEW SYRINGE VERSION) IV ONE (09:05)
[2018-01-06 09:46] LABS: Urine Appearance Clear; Urine Blood Negative (Negative); Urine Color Yellow; Urine Ketones Negative (Negative); Urine Protein 2+(100 mg/dL) (Negative); Urine Specific Gravity 1.016 (1.010-1.030); Urine Urobilinogen Negative (Negative)
[2018-01-06 09:48] LABS: EGFR Non-African American 56.2 (>60)
[2018-01-06] MEDS ORDERED: Iodixanol* (CONTRAST) 320 MG/ML 100 ML SDV IV ONE (10:05)
[2018-01-06 10:11] LABS: Hematocrit 38 % (42-52); Mean Corpuscular HGB Conc 29 g/dl (31-36); Mean Corpuscular Hemoglobin 17 pg (27-31); Mean Corpuscular Volume 58 fL (80-94); Mean Platelet Volume 9 um3 (7.4-10.4); Platelet Count 603 10^3/ul (150-450); Red Blood Count 6.42 10^6/ul (4.0-5.4); Red Cell Distribution Width 20 % (10.5-15); White Blood Count 5.6 10^3/ul (3.5-10.8)
--- NOTE | 2018-01-06 10:33 | ED ---
GI/ HPI - HPI Summary HPI Summary: 42-year-old male presents with abdominal pain for the past 3 days. He states it started as lower back. Pain radiates from his front to his right lower and left lower quadrant. He denies any testicular pain. He denies any fevers. He denies any nausea but admits vomiting. He states he has had a couple dark tarry stools. He has history of blood in his stool due to hemorrhoids. He has a history of anemia. He denies any dizziness or lightheadedness. Denies any chest pain or shortness of breath. He denies any recent illness. Denies any diarrhea. He states he denies any injury to his back. He denies any loss of bowel or bladder. Denies any saddle anesthesia. He denies any flank pain or pain with urination. He has history of kidney stones. He denies any hematuria. He denies any abdominal surgeries. He is not taking his iron. - History of Current Complaint Chief Complaint: EDAbdPain Time Seen by Provider: 01/06/18 08:51 Stated Complaint: ABD PAIN Pain Intensity: 9 - Allergy/Home Medications Allergies/Adverse Reactions: Allergies Allergy/AdvReac Type Severity Reaction Status Date / Time codeine Allergy Severe See Comment Verified 01/06/18 08:43 PMH/Surg Hx/FS Hx/Imm Hx Endocrine/Hematology History: Denies: Hx Diabetes, Hx Thyroid Disease Cardiovascular History: Denies: Hx Hypertension, Hx Pacemaker/ICD Respiratory History: Denies: Hx Asthma, Hx Chronic Obstructive Pulmonary Disease (COPD) GI History: Reports: Hx Ulcer - possiability for peptic ulcers History: Denies: Hx Renal Disease Sensory History: Denies: Hx Hearing Aid Psychiatric History: Reports: Hx Anxiety, Hx Panic Disorder - ANXIETY - Surgical History Surgery Procedure, Year, and Place: None Infectious Disease History: No Infectious Disease History: Denies: Hx Hepatitis, Hx Human Immunodeficiency Virus (HIV), Traveled Outside the [place] in Last 30 Days - Family History Known Family History: Positive: Diabetes - grandmother, Other - Ulcerative colitis Negative: Hypertension - Social History Alcohol Use: Occasionally Hx Substance Use: No Substance Use Type: Reports: None Hx Tobacco Use: Yes Smoking Status (MU): Heavy Every Day Tobacco Smoker Type: Cigarettes Review of Systems Negative: Fever Negative: Chest Pain Negative: Shortness Of Breath Positive: Abdominal Pain, Nausea. Negative: Vomiting All Other Systems Reviewed And Are Negative: Yes Physical Exam Triage Information Reviewed: Yes Vital Signs On Initial Exam: Initial Vitals Temp Pulse Resp BP Pulse Ox 98.6 F 114 22 151/91 100 01/06/18 08:40 01/06/18 08:40 01/06/18 08:40 01/06/18 08:40 01/06/18 08:40 Vital Signs Reviewed: Yes Appearance: Positive: Well-Appearing Skin: Positive: Warm, Dry Head/Face: Positive: Normal Head/Face Inspection Eyes: Positive: Normal, Conjunctiva Clear Respiratory/Lung Sounds: Positive: Clear to Auscultation, Breath Sounds Present Cardiovascular: Positive: Normal, RRR Abdomen Description: Positive: Soft, Other: - tenderness RLQ and LLQ. Negative : CVA Tenderness (R), CVA Tenderness (L) Bowel Sounds: Positive: Present Musculoskeletal: Positive: Normal Neurological: Positive: Normal Psychiatric: Positive: Normal Diagnostics - Vital Signs Vital Signs Temp Pulse Resp BP Pulse Ox 01/06/18 09:30 96 23 140/81 99 01/06/18 09:27 16 01/06/18 09:15 103 137/86 98 01/06/18 09:00 107 20 98 01/06/18 08:52 97.1 F 109 16 147/91 98 01/06/18 08:51 19 01/06/18 08:40 98.6 F 114 22 151/91 100 - Laboratory Lab Results: Lab Results 01/06/18 01/06/18 01/06/18 Range/Units 09:00 09:10 09:10 WBC 5.6 (3.5-10.8) 10^3/ul RBC 6.42 H (4.0-5.4) 10^6/ul Hgb 11.0 L (14.0-18.0) g/dl Hct 38 L (42-52) % MCV 58 L (80-94) fL MCH 17 L (27-31) pg MCHC 29 L (31-36) g/dl RDW 20 H (10.5-15) % Plt Count 603 H D (150-450) 10^3/ul MPV 9 (7.4-10.4) um3 Neut % (Auto) Pending Lymph % (Auto) Pending Blount % (Auto) Pending Eos % (Auto) Pending Baso % (Auto) Pending Absolute Neuts (auto) Pending Absolute Lymphs (auto) Pending Absolute Monos (auto) Pending Absolute Eos (auto) Pending Absolute Basos (auto) Pending Absolute Nucleated RBC Pending Nucleated RBC % Pending Sodium 136 (133-145) mmol/L Potassium 4.3 (3.5-5.0) mmol/L Chloride 101 (101-111) mmol/L Carbon Dioxide 29 (22-32) mmol/L Anion Gap 6 (2-11) mmol/L BUN 13 (6-24) mg/dL Creatinine 1.38 H (0.67-1.17) mg/dL Est GFR ( Amer) 72.3 (>60) Est GFR (Non-Af Amer) 56.2 (>60) BUN/Creatinine Ratio 9.4 (8-20) Glucose 174 H (70-100) mg/dL Calcium 9.8 (8.6-10.3) mg/dL Total Bilirubin 0.40 (0.2-1.0) mg/dL AST 24 (13-39) U/L ALT 24 (7-52) U/L Alkaline Phosphatase 44 (34-104) U/L C-React Prot High Sens 2.65 mg/L Total Protein 7.5 (6.4-8.9) g/dL Albumin 4.6 (3.2-5.2) g/dL Globulin 2.9 (2-4) g/dL Albumin/Globulin Ratio 1.6 (1-3) Lipase 53 (11.0-82.0) U/L Urine Color Yellow Urine Appearance Clear Urine pH 7.0 (5-9) Ur Specific [place] 1.016 (1.010-1.030) Urine Protein 2+(100 mg/dl) A (Negative) Urine Ketones Negative (Negative) Urine Blood Negative (Negative) Urine Nitrate Negative (Negative) Urine Bilirubin Negative (Negative) Urine Urobilinogen Negative (Negative) Ur Leukocyte Esterase Negative (Negative) Urine WBC (Auto) Trace(0-5/hpf) (Absent) Urine RBC (Auto) Trace(0-2/hpf) (Absent) Urine Bacteria Absent (Absent) Urine Glucose Negative (Negative) Result Diagrams: 01/06/18 09:10 01/06/18 09:10 Lab Statement: Any lab studies that have been ordered have been reviewed, and results considered in the medical decision making process. - CT abd CT Interpretation: Positive (See Comments) - IMPRESSION: No abnormal masses or fluid collections are noted. There is circumferential wall thickening of the descending duodenum which was present previously although it is more apparent now that the distended. Direct inspection may BE indicated. Small inguinal lymph nodes are noted. CT Interpretation Completed By: Radiologist JACINTO Course/Dx - Course Course Of Treatment: 42-year-old male presents with abdominal pain for the past 3 days. He states it started as lower back. Pain radiates from his front to his right lower and left lower quadrant. He denies any testicular pain. He denies any fevers. He denies any nausea but admits vomiting. He states he has had a couple dark tarry stools. He has history of blood in his stool due to hemorrhoids. He has a history of anemia. He denies any dizziness or lightheadedness. Denies any chest pain or shortness of breath. He denies any recent illness. Denies any diarrhea. He states he denies any injury to his back. He denies any loss of bowel or bladder. Denies any saddle anesthesia. He denies any flank pain or pain with urination. He has history of kidney stones. He denies any hematuria. He denies any abdominal surgeries. On exam tenderness to left lower and right lower quadrant without rebound. Negative CVA tenderness. White blood cell and CRP within normal limits. Labs show anemia which is similar to previous. h/h has improved. Lab shows elevated creatinine which is similar to previous. CT shows thickening doudenum. will have follow up with GI. will prescribe omeprazole for duodenititis? will have continue iron for iron def anemia. patient understand and agrees with plan. - Diagnoses Differential Diagnoses - Male: Gastroenteritis (Bacterial), Gastroenteritis ( Viral), Hemorrhoids, Urinary Tract Infection Provider Diagnoses: Abdominal pain Discharge - Discharge Plan Condition: Good Disposition: HOME Prescriptions: Al Hydrox/Mg Hydrox/Simet LIQ* [Maalox Plus*] 30 ml PO Q6H PRN #1 bottle PRN Reason: Indigestion Ferrous Sulfate TAB* 325 mg PO BID #30 tab Omeprazole CAP* [Prilosec CAP* 20 MG] 20 mg PO DAILY #30 cap. Patient Education Materials: Abdominal Pain (ED) Forms: *Work Release Referrals: Kim Wilkins NP [Primary Care Provider] - Leonard Gregg MD [Medical Doctor] - Additional Instructions: Take omeprazole once a day Take iron twice a day Take maalox 30ml every 6 hours as needed for indigestion Follow up with GI Take tyenlol every 6 hours for pain Return to ED if develop any new or worsening symptoms
[2018-01-06 10:58] LABS: Monocytes % 8 % (0-7)
--- NOTE | 2018-01-06 12:47 | RAD ---
Right lower quadrant pain, left lower quadrant pain and melanoma. Contrast: Administered 100.1 ml of VISAPAQUE 320 mg/ml CT of the abdomen and pelvis was performed after oral and IV contrast administration. Coronal and sagittal reconstructed images were obtained. The lung bases demonstrate no pleural fluid, nodules or masses. Heart is of normal size without evidence of pericardial effusion. Liver is normal in size. No focal lesions or intrahepatic ductal dilatation is noted. The gallbladder demonstrates no calcified gallstones. The common duct is not dilated. Pancreas demonstrates no mass or pancreatic duct dilatation. The spleen is normal in size. No adrenal lesions are noted. The kidneys demonstrate symmetric nephrograms without focal lesions. No retroperitoneal lymphadenopathy is noted. No dilated loops of bowel are noted. CT of the pelvis demonstrates no retroperitoneal or pelvic adenopathy. Urinary bladder is unremarkable. Diverticulosis without definite evidence of diverticulitis is noted. There is circumferential wall thickening of the gastric antrum and duodenum. Underlying neoplastic process is not excluded. This was also noted on prior exam although is more prominent on the current exam directed visualization may be indicated. CT of the pelvis demonstrates no retroperitoneal or pelvic lymphadenopathy. No dilated loops of bowel are noted. The bladder is unremarkable. No hernias are noted. The bony structures are unremarkable. Small inguinal lymph nodes are noted. IMPRESSION: No abnormal masses or fluid collections are noted. There is circumferential wall thickening of the descending duodenum which was present previously although it is more apparent now that the distended. Direct inspection may BE indicated. Small inguinal lymph nodes are noted.
[2018-01-06 13:14] VITALS: BP 134/82
== END 2018-01-06 13:12 | disposition home or self-care (01) ==
LOC: ED 08:34
DX: R10.9 Unspecified abdominal pain (principal); M54.5 Low back pain; F17.210 Nicotine dependence, cigarettes, uncomplicated; Z87.442 Personal history of urinary calculi; R11.0 Nausea
CPT/HCPCS: 36415; 74177; 80053; 81003; 81015; 83690; 85025; 86141; 87086; 96361; 96374; 99283; J2270; Q9967

== ENCOUNTER 2018-06-15 18:45 | Emergency (ER) | payer OTHER ==
--- OUTSIDE RECORDS SUMMARY | 2018-06-15 18:50 | XMS REPORT ---
:1975 External Reference #:[id number] Author Organization [employer] Address [address] [place] [address] Phone [phone] Care Team Providers Name Role Phone Fiona Hickey PA Primary Care Physician Unavailable Payers Type Date Identification Numbers Payment Provider Subscriber Commercial Policy Number: [id number] Alton Hickman PayID: [id number] [address] [place] [address] Medigap Part B Effective: 2016 Policy Number: BS Pastor Hickman [id number] Expires: 2018 Group Number: [id number] [address] PayID: [id number] [place] [address] Medigap Part B Expires: 2016 Policy Number: [id number] BS Pastor Keene PayID: [id number] [address] [address] [place] [address] Problems Date Description Provider Status Onset: 01/14/2017 Shoulder joint pain Abdirashid Brown M.D. Active Onset: 01/14/2017 Brachial neuritis Abdirashid Brown M.D. 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 [employer] ETOH Use Denies alcohol use Recreational Drug Use Denies Drug Use Smoking Heavy tobacco smoker (more than 10 cigarettes/day) Exercise Type/Frequency Exercises regularly Allergies, Adverse Reactions, Alerts Date Description Reaction Status Severity Comments 08/04/2014 Codeine active Medications Medication Date Status Form Strength Qnty SIG Indications Ordering Provider Lexapro 00/ Active Tablets 10mg 30tabs 1 by mouth Unknown 0000 every day Gabapentin 00/00/ Active Tablets 600mg [place] 0000 LIZANDRO kim Medrol 12/31/ Hx Tablets 4mg 21tabs take as M47.22 Thaddeus 2017 - directed per F 01/14/ dosepak Freddy Messer instructions Xanax / Hx Tablets 2mg 30tabs 1 by mouth as Unknown 0000 - needed 2017 Omeprazole / Hx Capsules 20mg 90caps 1 by mouth Unknown 0000 - DR every day 2013 Fluocinonide / Hx Cream 0.05% 30unit apply bid as Unknown 0000 - s needed 2013 Medications Administered in Office Medication Date Status Form Strength Qnty SIG Indications Ordering Provider Aniya Administered Injection Rosanna 80MG Ishan Foster M.D. Vital Signs Date Vital Result Comment 06/11/2018 Height 66 inches 5'6" Weight 174.75 lb Heart Rate 76 /min BP Systolic 120 mmHg BP Diastolic 70 mmHg Respiratory Rate 14 /min Pain Level 9 BMI (Body Mass Index) 28.2 kg/m2 01/14/2017 Height 66 inches 5'6" Weight 191.00 lb Heart Rate 78 /min BP Systolic Sitting 158 mmHg BP Diastolic Sitting 88 mmHg Pain Level 7 BMI (Body Mass Index) 30.8 kg/m2 12/31/2016 Height 66 inches 5'6" Weight 196.00 lb Heart Rate 88 /min BP Systolic Sitting 124 mmHg BP Diastolic Sitting 62 mmHg Respiratory Rate 14 /min Body Temperature 97.6 F Pain Level 7 BMI (Body Mass Index) 31.6 kg/m2 09/08/2014 Height 66 inches 5'6" Weight 198.00 lb Heart Rate 80 /min BP Systolic Sitting 122 mmHg BP Diastolic Sitting 80 mmHg BMI (Body Mass Index) 32.0 kg/m2 Results Description No Information Procedures Date CPT Code Description Status 03/25/2018 10341 Endoscopy Upper GI Biopsy Completed 02/17/2018 11983 Endoscopy Upper GI Biopsy Completed 09/08/2014 30129 Inject/Drain Joint/Bursa Intermediate W/O US Completed Encounters Type Date Location Provider CPT E/M Dx Office Visit 11/25/2017 [facility], Dino Garza, 67553 D50.0 2:44p Mónica Tucker K64.9 Z72.0 Office Visit 01/14/2017 3:40p [facility] Abdirashid Brown, 64655 M54.12 Of Michael Tucker M25.512 Office Visit 12/31/2016 10:30a [facility] Thaddeus Messer, 34989 M47.22 Of Debby JOHNSON Office Visit 09/08/2014 1:45p [facility] Rosanna Foster, 21487 715.12 Of Michael FAYE Meno Caitlin Plan of Care 06/11/2018 - Rosanna Foster M.D.M25.522 Pain in left elbowNew Xrays:Elbow Left 3+VWSMRI Elbow Left W/OFollow up:Follow up: after testing is [id number] Flexion deformity, left elbow
[2018-06-15 19:15] VITALS: BP 128/78
--- NOTE | 2018-06-15 19:44 | UC ---
Throat Pain/Nasal Javed HPI - HPI Summary HPI Summary: 3-4 days of mouth discomfort. States his tongue feels like it has a coating on it and the back of his throat is raw. Feels fatigued and overall unwell. No cough or congestion. Denies fever. - History of Current Complaint Chief Complaint: UCGeneralIllness Stated Complaint: FATIGUE Time Seen by Provider: 06/15/18 19:33 Hx Obtained From: Patient Onset/Duration: Gradual Onset, Lasting Days, Still Present Severity: Moderate Pain Intensity: 6 Pain Scale Used: 0-10 Numeric Cough: None Associated Signs & Symptoms: Positive: Negative - Allergies/Home Medications Allergies/Adverse Reactions: Allergies Allergy/AdvReac Type Severity Reaction Status Date / Time codeine AdvReac Severe See Comment Verified 06/15/18 19:15 Home Medications: Home Medications Ibuprofen TAB* [Advil TAB*] 400 mg PO ONCE PRN 06/15/18 [History Confirmed 06/15] PMH/Surg Hx/FS Hx/Imm Hx Previously Healthy: Yes - Surgical History Surgical History: None Surgery Procedure, Year, and Place: None - Family History Known Family History: Positive: Diabetes - grandmother, Other - Ulcerative colitis Negative: Hypertension - Social History Alcohol Use: None Substance Use Type: None Smoking Status (MU): Current Every Day Smoker Type: Cigarettes Amount Used/How Often: 3/4 PPD Review of Systems Constitutional: Fatigue ENT: Sore Throat Respiratory: Negative Cardiovascular: Negative Gastrointestinal: Negative All Other Systems Reviewed And Are Negative: Yes Physical Exam Triage Information Reviewed: Yes Appearance: No Pain Distress, Well-Nourished, Ill-Appearing - mild Vital Signs: Initial Vital Signs Temp 99.8 F 06/15/18 19:11 Pulse 95 06/15/18 19:11 Resp 16 06/15/18 19:11 BP 128/78 06/15/18 19:11 Pulse Ox 100 06/15/18 19:11 Eyes: Positive: Conjunctiva Clear ENT: Positive: Hearing grossly normal, Pharyngeal erythema, TMs normal, Tonsillar swelling, Uvula midline - EDEMATOUS, Other - TONGUE WITH WHITE COATING. WHITE PATCH RIGHT INNER CHEEK.. Negative: Tonsillar exudate Neck: Positive: Supple, Nontender, No Lymphadenopathy Respiratory Exam: Normal Cardiovascular: Positive: Tachycardia Abdomen Description: Positive: Soft Musculoskeletal: Positive: No Edema Neurological: Positive: Alert Psychological: Positive: Age Appropriate Behavior Skin: Negative: rashes Diagnostics - Laboratory Diagnostic Studies Completed/Ordered: STREP NEG Throat Pain/Nasal Course/Dx - Differential Dx/Diagnosis Provider Diagnoses: 1. ORAL THRUSH. 2. UVULITIS Discharge - Sign-Out/Discharge Documenting (check all that apply): Patient Departure All imaging exams completed and their final reports reviewed: No Studies - Discharge Plan Condition: Stable Disposition: HOME Prescriptions: Naproxen [Naproxen EC] 500 mg PO BID PRN #30 tab PRN Reason: Pain Nystatin SUSPENSION* 5 ml PO QID #200 ml Patient Education Materials: Oral Candidiasis (ED), Uvulitis (ED) Forms: *Work Release Referrals: Kim Wilkins NP [Primary Care Provider] - If Needed Additional Instructions: STREP TEST NEGATIVE. YOU MAY HAVE DEVELOPED THRUSH DUE TO YOUR RECENT STEROID USE. USE THE [place] SWISH AND SWALLOW FOR 10 DAYS. IF YOUR SYMPTOMS DO NOT IMPROVE FOLLOW-UP WITH YOUR PRIMARY CARE PROVIDER. THE INFLAMMATION AND SWELLING IN THE BACK YOUR THROAT IS LIKELY DUE TO A VIRAL INFECTION. TAKE THE NAPROXEN TWICE DAILY FOR THE NEXT FEW DAYS TO HELP WITH THE DISCOMFORT AND INFLAMMATION. DO NOT TAKE YOUR MOBIC BACK WHILE USING THIS MEDICATION. STAY WELL-HYDRATED DRINKING PLENTY OF WATER. AVOID IRRITATING THINGS SUCH ACIDIC OR SPICY FOODS. GO TO THE ED WITHOUT FAIL IF YOU DEVELOP WORSENING SWELLING IN THE BACK OF YOUR THROAT OR ANY RESPIRATORY COMPROMISE. - Billing Disposition and Condition Condition: STABLE Disposition: Home
[2018-06-15] MEDS ORDERED: Naproxen TAB* 250 MG PO ONE (20:36)
== END 2018-06-15 20:55 | disposition home or self-care (01) ==
LOC: UCEAST 18:45
DX: B37.0 Candidal stomatitis (principal); K12.2 Cellulitis and abscess of mouth; F17.210 Nicotine dependence, cigarettes, uncomplicated; Z88.5 Allergy status to narcotic agent
CPT/HCPCS: 87651; 99212; A9270-GY; G0463

== ENCOUNTER 2018-06-26 12:16 | Emergency (ER) | payer OTHER ==
[2018-06-26 13:08] VITALS: BP 132/64
--- OUTSIDE RECORDS SUMMARY | 2018-06-26 13:35 | XMS REPORT ---
:1975 External Reference #:[id number] Author Organization [email or web address] Address [address] [place] [address] Phone [phone] Care Team Providers Name Role Phone Fiona Hickey PA Primary Care Physician Unavailable Payers Type Date Identification Numbers Payment Provider Subscriber Commercial Policy Number: [id number] Alton Hickman PayID: [id number] [address] [place] [address] Medigap Part B Effective: 2016 Policy Number: BS Pastor Hickman [id number] Expires: 2018 Group Number: [id number] [address] PayID: [id number] [place] [address] Medigap Part B Expires: 2016 Policy Number: [id number] BS Pastor Keene PayID: [id number] [address] [address] [place] [address] Problems Date Description Provider Status Onset: 01/14/2017 Shoulder joint pain Abdirashid Brown M.D. Active Onset: 01/14/2017 Brachial neuritis Abdirashid Brown M.D. 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 Vital Signs Date Vital Result Comment 06/25/2018 Height 66 inches 5'6" Weight 175.00 lb Heart Rate 76 /min BP Systolic 118 mmHg BP Diastolic 78 mmHg Respiratory Rate 12 /min Pain Level 7 BMI (Body Mass Index) 28.2 kg/m2 06/11/2018 Height 66 inches 5'6" Weight 174.75 [...] Information Procedures Date CPT Code Description Status 06/25/201839895 Inject/Drain Joint/Bursa Intermediate W/O US Completed 03/25/2018 84194 Endoscopy Upper GI Biopsy Completed 02/17/2018 56622 Endoscopy Upper GI Biopsy Completed 09/08/201473240 Inject/Drain Joint/Bursa Intermediate W/O US Completed Encounters Type Date Location Provider CPT E/M Dx Office Visit 06/25/2018 [facility] Rosanna Foster, 99922 M67.322 1:30p Of Debby Tucker Office Visit 06/11/2018 [facility] Rosanna Foster, 84302 M25.522 8:30a Of Debby Tucker M21.222 Office Visit 11/25/2017 2:44p [facility], Dino Garza, 70403 D50.0 Hospitalists Caitlin K64.9 Z72.0 Office Visit 01/14/2017 3:40p [facility] Abdirashid Brown, 33012 M54.12 Of Michael Tucker M25.512 Office Visit 12/31/2016 10:30a [facility] Thaddeus Messer, 89139 M47.22 Of Debby JOHNSON Office Visit 09/08/2014 1:45p [facility] Rosanna Foster, 98[address] 715.12 Of Michael AT [place] Caitlin Plan of Care 06/25/2018 - Rosanna Foster M.D.M67.322 Transient synovitis, left elbowFollow up:Follow up: As needed
[2018-06-26] MEDS ORDERED: NS 0.9% 1000 ML* 1,000 ML IV ONE ×2 (13:38→14:44)
[2018-06-26] MEDS ORDERED: Dexamethasone IV* 4 MG/ML 5 ML VIAL (20 MG) IVPB ONE (13:38)
--- NOTE | 2018-06-26 13:40 | ED ---
Complex/Multi-Sys Presentation - HPI Summary HPI Summary: Pt. is a 42 y.o male who presents to the ER for multiple complaints. Past. states that he has been dealing with left elbow pain for weeks. He states he was on a course of prednisone a few weeks ago and received a cortisone injection yesterday. Pt. states he then developed thrush after steroids and received nystatin. Pt. states he then developed swelling and pain to uvula and was started augmentin a few days ago. Pt. presents to the ER today because he is feeling generalized fatigue as well as having blurry vision that started earlier today. Pt. c/o h/o behind eyes but denies numbness, tingling or weakness. Pt. also notes increased thrust and urination over the last few weeks. He denies significant past medical hx. Symptoms are moderate in severity. No current modifying factors. - History Of Current Complaint Chief Complaint: EDDizziness Time Seen by Provider: 06/26/18 13:16 Hx Obtained From: Patient - Allergies/Home Medications Allergies/Adverse Reactions: Allergies Allergy/AdvReac Type Severity Reaction Status Date / Time apple Allergy Mild Swelling Verified 06/27/18 12:09 Of Face,Lips,& Throat garzon Allergy Mild Swelling Verified 06/27/18 12:09 Of Face,Lips,& Throat codeine AdvReac Severe See Comment Verified 06/27/18 12:09 PMH/Surg Hx/FS Hx/Imm Hx Previously Healthy: Yes Endocrine/Hematology History: Denies: Hx Diabetes, Hx Thyroid Disease Cardiovascular History: Denies: Hx Hypertension, Hx Pacemaker/ICD Respiratory History: Denies: Hx Asthma, Hx Chronic Obstructive Pulmonary Disease (COPD) GI History: Reports: Hx Ulcer History: Denies: Hx Renal Disease Sensory History: Denies: Hx Hearing Aid Psychiatric History: Reports: Hx Anxiety, Hx Panic Disorder - ANXIETY - Surgical History Surgery Procedure, Year, and Place: None Infectious Disease History: No Infectious Disease History: Denies: Hx Hepatitis, Hx Human Immunodeficiency Virus (HIV), Traveled Outside the [place] in Last 30 Days - Family History Known Family History: Positive: Diabetes - grandmother, Other - Ulcerative colitis Negative: Hypertension - Social History Occupation: Unemployed Lives: With Family Alcohol Use: None Hx Substance Use: No Substance Use Type: Reports: None Hx Tobacco Use: Yes Smoking Status (MU): Heavy Every Day Tobacco Smoker Type: Cigarettes Amount Used/How Often: 3/4 PPD Review of Systems Constitutional: Negative Negative: Fever, Chills Positive: Blurred Vision ENT: Negative Cardiovascular: Negative Negative: Chest Pain Respiratory: Negative Negative: Shortness Of Breath Gastrointestinal: Negative Negative: Abdominal Pain, Vomiting, Diarrhea, Nausea Positive: frequency Positive: Other - Left elbow pain Positive: Headache, Weakness - generalized. Negative: Paresthesia, Numbness, Syncope, Slurred Speech All Other Systems Reviewed And Are Negative: Yes Physical Exam Vital Signs On Initial Exam: Initial Vitals Temp Pulse Resp BP Pulse Ox 98.6 F 120 19 152/85 99 06/26/18 12:20 06/26/18 12:20 06/26/18 12:20 06/26/18 12:20 06/26/18 12:20 Diagnostics - Vital Signs Vital Signs Temp Pulse Resp BP Pulse Ox 06/26/18 13:06 99.7 F 114 14 132/64 97 06/26/18 12:20 98.6 F 120 19 152/85 99 - Laboratory Result Diagrams: 06/26/18 14:03 06/26/18 14:03 Lab Statement: Any lab studies that have been ordered have been reviewed, and results considered in the medical decision making process. Complex Multi-Symp Course/Dx Course Of Treatment: Pt. presenting for the above complaints. Low grade fever and is mildly tachycardic. Given complaints of new headache and blurry vision will obtain head CT. Basic labs ordered. Will give IV fluids for tachycardia. CBC shows leukocytosis of 15k, chronic anemia. CMP shows low Na 127, elevated K of 5.1, Cl 93, elevated glucose of 584, CRP 56, cr 1.18. Urine shows large glucose and ketones without signs of infection. Brain CT shows a large occipital arachnoid cyst, no acute findings, reading per radiology. Results were discussed with pt. Pt. has remained consistently tachycardic. Given labs and new onset hyperglycemia recommend admission to start glucose management. Pt. 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 Will have pt. sign out AMA. He has decision making capacity. To call PCP tomorrow for apt. - Diagnoses Provider Diagnoses: Acute hyperglycemia, Intracranial arachnoid cyst, Hyponatremia, Hyperkalemia Discharge - Sign-Out/Discharge Documenting (check all that apply): Patient Departure - Discharge Plan Condition: Fair Disposition: AGAINST MEDICAL ADVICE Patient Education Materials: Hyponatremia (ED), Hyperkalemia (ED), Diabetic Hyperglycemia (ED) Referrals: Kim Wilkins NP [Primary Care Provider] - Sadiq Aguilar MD [Medical Doctor] - Additional Instructions: Call your PCP today Return to [facility] for further care and evaluation - Billing Disposition and Condition Condition: FAIR Disposition: Against Medical Advice
[2018-06-26 14:16] LABS: ABS Basophils 0.1 10^3/ul (0-0.2); ABS Eosinophils 0 10^3/ul (0-0.6); ABS Lymphocytes 1.3 10^3/ul (1.0-4.8); ABS Monocytes 1.2 10^3/ul (0-0.8); ABS Neutrophils 12.7 10^3/ul (1.5-7.7); ABS Nucleated RBC 0 10^3/ul; Eosinophil % 0.2 % (0-6); Hematocrit 40 % (42-52); Lymphocyte % 8.5 % (25-47); Mean Corpuscular HGB Conc 30 g/dl (31-36); Mean Corpuscular Hemoglobin 19 pg (27-31); Mean Corpuscular Volume 62 fL (80-94); Nucleated Red Blood Cells % 0; Platelet Count 324 10^3/ul (150-450); Red Cell Distribution Width 19 % (10.5-15); White Blood Count 15.3 10^3/ul (3.5-10.8)
[2018-06-26 14:32] LABS: EGFR Non-African American 67.4 (>60)
[2018-06-26] MEDS ORDERED: Insulin REGULAR(*) 1 UNITS UNIT IV PUSH ONE (14:42)
[2018-06-26] MEDS ORDERED: Dexamethasone IV* 4 MG in NS 0.9% 50 ML* 50 ML IVPB ONE (14:45)
--- NOTE | 2018-06-26 14:50 | RAD ---
HISTORY: h/a, blurry vision COMPARISONS: None TECHNIQUE: Multiple contiguous axial CT scans were obtained of the head without intravenous contrast. FINDINGS: HEMORRHAGE/INFARCT: There is no hemorrhage or acute infarct. MASSES/SHIFT: There is no mass or shift. EXTRA-AXIAL SPACES: There is large arachnoid cyst of the posterior fossa extending into the superior vermin cistern measuring 7.3 x 8.6 cm transversely. This is centered to the left of midline. SULCI AND VENTRICLES: The sulci and ventricles are normal in size and position for the patient's stated age. CEREBRUM: There are no focal parenchymal abnormalities. BRAINSTEM: There are no focal parenchymal abnormalities. CEREBELLUM: There are no focal parenchymal abnormalities. VESSELS: The vessels are grossly normal. PARANASAL SINUSES: The paranasal sinuses are clear. ORBITS: The orbits are unremarkable. BONES AND SOFT TISSUE: No bone or soft tissue abnormalities are noted. OTHER: None IMPRESSION: NO ACUTE INTRACRANIAL PATHOLOGY. LARGE OCCIPITAL ARACHNOID CYST.
[2018-06-26] MEDS ORDERED: Dexamethasone IV* 10 MG in NS 0.9% 50 ML* 50 ML IVPB ONE (15:00)
[2018-06-26 16:26] LABS: Urine Appearance Clear; Urine Blood 1+ (Negative); Urine Color Straw; Urine Ketones 1+ (Negative); Urine Protein 2+(100 mg/dL) (Negative); Urine Red Blood Cell 1+(3-5/hpf) (Absent); Urine Specific Gravity 1.036 (1.010-1.030); Urine Urobilinogen Negative (Negative); Urine White Blood Cell Trace(0-5/hpf) (Absent)
== END 2018-06-26 16:50 | disposition left against medical advice (07) ==
LOC: ED 12:16
DX: R73.9 Hyperglycemia, unspecified (principal); G93.0 Cerebral cysts; H53.8 Other visual disturbances; E87.1 Hypo-osmolality and hyponatremia; E87.5 Hyperkalemia; F17.210 Nicotine dependence, cigarettes, uncomplicated
CPT/HCPCS: 36415; 70450; 80053; 81003; 81015; 82010; 85025; 86140; 86618; 87086; 93005; J1100

== ENCOUNTER 2018-07-09 12:18 | Observation (INO) | payer OTHER ==
[2018-07-09] MEDS ORDERED: NS 0.9% 1000 ML* 1,000 ML IV ONE (14:46)
--- NOTE | 2018-07-09 14:56 | ED ---
Throat Pain/Nasal Congestion - HPI Summary HPI Summary: This patient is a 42 year old M presenting to ED with a chief complaint of blurred vision in both eyes since 06/29/18. The patient was in the ED on 06/26/18- 06/27/18 and was dx with DM. He was given Metformin and has been taking it and is now at 1000mg twice a day. The CC is described as starting as slightly blurry when reading small writing but has worsened since onset. The patient rates the pain 0/10 in severity. Symptoms aggravated by nothing. Symptoms alleviated by nothing. Patient reports he has been unable to drive due to the increased blurred vision. Patient denies frequent urination and dehydration. The patient had a Brain CT on 06/26/18 when he was in the ED that revealed NO ACUTE INTRACRANIAL PATHOLOGY AND LARGE OCCIPITAL ARACHNOID CYST. Pt states that he was prescribed addition medications for his DM, but these were denied by his insurance company. Pt states he has checked his glucoses while taking the metformin, and only twice were the readings in the 100's, all other readings were 200-300. Current vitals include 83 BPM, 98 O2 sat, and BP 122/68. FS in the ED was greater than 400. Home Medications Medication Instructions Recorded Confirmed Type Omeprazole CAP* [Prilosec CAP* 20 40 mg PO DAILY 03/19/18 07/09/18 History MG] Escitalopram (NF) [Lexapro 20 mg 20 mg PO DAILY 06/27/18 07/09/18 History (NF)] Gabapentin TAB(NF) [Neurontin 600 600 mg PO TID 06/27/18 07/09/18 History mg TAB(NF)] Ondansetron ODT TAB* [Zofran 4 MG 4 mg PO Q8H PRN #10 odt 06/27/18 07/09/18 Rx Odt TAB*] Naproxen [Naproxen 500 mg tab] 500 mg PO BID PRN 07/09/18 07/09/18 History metFORMIN* [Glucophage 500 MG TAB 1,000 mg PO BID 07/09/18 07/09/18 History *] - History of Current Complaint Chief Complaint: EDEyeProblem Time Seen by Provider: 07/09/18 14:46 Hx Obtained From: Patient, Medical Records - ED visits 06/2018 Onset/Duration: Sudden Onset, Lasting Weeks - since 06/29/18, Worse Since Severity: Moderate Cough: None Related History: Other (Noted In Comments) - occipital arachnoid cyst and new poorly controlled DM - Allergies/Home Medications Allergies/Adverse Reactions: Allergies Allergy/AdvReac Type Severity Reaction Status Date / Time apple Allergy Mild Swelling Verified 06/27/18 12:09 Of Face,Lips,& Throat garzon Allergy Mild Swelling Verified 06/27/18 12:09 Of Face,Lips,& Throat codeine AdvReac Severe See Comment Verified 06/27/18 12:09 avocado Allergy Tingling Uncoded 07/09/18 23:03 kiwi Allergy Tingling Uncoded 07/09/18 23:03 Home Medications: Home Medications Naproxen [Naproxen 500 mg tab] 500 mg PO BID PRN 07/09/18 [History Confirmed ] PMH/Surg Hx/FS Hx/Imm Hx Previously Healthy: No Endocrine/Hematology History: Reports: Hx Diabetes Denies: Hx Thyroid Disease Cardiovascular History: Denies: Hx Hypertension, Hx Pacemaker/ICD Respiratory History: Denies: Hx Asthma, Hx Chronic Obstructive Pulmonary Disease (COPD) GI History: Reports: Hx Ulcer History: Denies: Hx Renal Disease Sensory History: Denies: Hx Hearing Aid Neurological History: Reports: Other Neuro Impairments/Disorders - occipital arachnoid cyst on CT 06/26/18 Psychiatric History: Reports: Hx Anxiety, Hx Panic Disorder - Surgical History Surgery Procedure, Year, and Place: None Infectious Disease History: No Infectious Disease History: Denies: Hx Hepatitis, Hx Human Immunodeficiency Virus (HIV), Traveled Outside the [place] in Last 30 Days - Family History Known Family History: Positive: Diabetes - grandmother, Other - Ulcerative colitis Negative: Hypertension - Social History Occupation: Employed Full-time Lives: With Family Alcohol Use: None Hx Substance Use: No Substance Use Type: Reports: None Hx Tobacco Use: Yes Smoking Status (MU): Heavy Every Day Tobacco Smoker Type: Cigarettes Amount Used/How Often: 3/4 PPD Review of Systems Constitutional: Negative Positive: Blurred Vision Positive: Other - dehydration Respiratory: Negative Gastrointestinal: Negative Negative: frequency Musculoskeletal: Negative Skin: Negative Positive: Headache Psychological: Normal All Other Systems Reviewed And Are Negative: Yes Physical Exam - Summary Physical Exam Summary: Appearance: Well-appearing, no pain distress, well-nourished Skin: Warm, color reflects adequate perfusion, dry Head: Normal Head/Face inspection, atraumatic Eyes: Conjunctiva clear. Funduscopic exam done at 1550: The discs are sharp and flat. No hemorrhage noted., PERRL, EOMI, no nystagmus ENT: Normal inspection Neck: Supple, no nodes, no JVD Respiratory: Lungs clear, normal breath sounds, no respiratory distress Cardio: RRR, No murmur, pulses normal, brisk capillary refill Abdomen: Soft, nontender Bowel sounds: Present Musculoskeletal: Strength Intact/ROM intact, no calf tenderness, no edema. Psychological: Normal Neuro: Alert, muscle tone normal, no focal deficit Visual acuity: L eye - 20/100 R eye - 20/50 Both - 20/50 Pt states he has glasses to correct to 20/20 but they are in the car. This reading is without glasses. Pt states the blurry vision is equal in both eyes. Pt is able to read the computer screen saver words without glasses after hydration. Triage Information Reviewed: Yes Vital Signs On Initial Exam: Initial Vitals Temp Pulse Resp BP Pulse Ox 98.6 F 107 14 148/88 97 07/09/18 12:21 07/09/18 12:21 07/09/18 12:21 07/09/18 12:21 07/09/18 12:21 Vital Signs Reviewed: Yes Diagnostics - Vital Signs Vital Signs Temp Pulse Resp BP Pulse Ox 07/09/18 12:21 98.6 F 107 14 148/88 97 - Laboratory Result Diagrams: 07/10/18 07:29 07/10/18 07:29 Lab Statement: Any lab studies that have been ordered have been reviewed, and results considered in the medical decision making process. - Additional Comments Diagnostic Additional Comments: Brain MRI without contrast reveals 1. Approximately 8.7 x 5.4 cm CSF isointense cystic mass within the left posterior fossa, possibly arachnoid cyst. Associated adjacent mass effect upon the left cerebellar hemisphere with rightward shift of the cerebellar vermis. 2. 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 ED physician has reviewed this radiology report. Re-Evaluation - Re-Evaluation First Eval Re-Evaluation Time: 16:32 Change: Improved Comment: The patient reports his vision is good. He was able to urinate and is currently not having problems. Second Eval Re-Evaluation Time: 16:56 Change: Unchanged Comment: The patient reports he has been checking his blood sugar regularly. Only twice did it show that he had glucose in the 100s. Usually it is between 230s and mid 300s since taking Metformin. Third Eval Re-Evaluation Time: 17:20 Change: Unchanged Comment: Discussed consult with Dr. Aguilar and Dr. Morley. Pt agrees to admission for further evaluation. EENT Course/Dx - Course Assessment/Plan: This patient is a 42 year old M presenting to ED with a chief complaint of blurred vision in both eyes since 06/29/18. Pt has uncontrolled DM as a possible cause of his blurred vision, however pt also has an occipital arachnoid cyst that could be contributing to his blurred vision. Discussed the case with Dr. Varela who recommends and MRI with and without contrast. Also discussed pt's care with Dr. Morley who agrees with current evaluation and states that pt does not need acute inpatient ophthalmology exam, and that he will see pt in the office as soon as he is discharged. Discussed with x ray technologist about the patient. Because of GFR at 25 from a previous GFR of 87, tech cannot do MRI with contrast and can only do without contrast. Earliest time they can do the MRI with contrast is 2000pm tonight. Brain MRI without contrast reveals 1. Approximately 8.7 x 5.4 cm CSF isointense cystic mass within the left posterior fossa, possibly arachnoid cyst. Associated adjacent mass effect upon the left cerebellar hemisphere with rightward shift of the cerebellar vermis. 2. 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 The patient will be admitted with dx of blurred vision, poorly controlled DM, acute kidney injury, hyperglycemia, arachnoid cyst, and tobacco abuse disorder. Patient understands and agrees with this plan. - Diagnoses Provider Diagnoses: Tobacco abuse disorder, Blurred vision, Poorly controlled diabetes mellitus, Arachnoid cyst, Acute kidney injury, Hyperglycemia - Provider Notifications Discussed Care Of Patient With: Sadiq Aguilar Time Discussed With Above Provider: 17:10 Instructed by Provider To: Other - Consulted Dr. Aguilar who recommends a Brain MRI with and without contrast. He also recommends to contact a neuro grain merchandising manager. Discussed with x ray technologist about the patient. Because of GFR at 25 from a previous GFR of 87, tech cannot do MRI with contrast and can only do without contrast. Earliest time they can do the MRI with contrast is 2000pm. Consulted Dr. Morley at 1747 to make him aware about the patient's case. He states that the pt does not need urgent inpatient ophthalmology consult at this time. He states the blurred vision could be just due to elevated glucose or the beginning of diabetic retinopathy or occipital cyst. He states it is likely not the arachnoid cyst causing the blurry vision because that would usually give a central field cut, which pt does not have based on my reported exam to Dr. Morley. Dr. Morley states he will need outpatient formal visual field testing , and exam for diabetic retinopathy and that he will see him as soon as he is discharged for these exams which require specialized office equipment. Consulted Dr. Reid at 1801 who accepts the patient for admission. Dr. Aguilar will also consult in patient. Discharge - Sign-Out/Discharge Documenting (check all that apply): Patient Departure - Discharge Plan Condition: Stable Disposition: ADMITTED TO [facility] - Billing Disposition and Condition Condition: STABLE Disposition: Admitted to [facility] - Attestation Statements Document Initiated by Scribe: Yes Documenting Scribe: Chris Chambers Provider For Whom Osvaldoe is Documenting (Include Credential): Nita Palma MD Scribe Attestation: Chris Valerio, scribed for Nita Palma MD on 07/14/18 at 2303. Scribe Documentation Reviewed: Yes Provider Attestation: The documentation as recorded by the Chris tong accurately reflects the service I personally performed and the decisions made by me, Nita Palma MD
[2018-07-09 15:35] LABS: ABS Basophils 0 10^3/ul (0-0.2); ABS Eosinophils 0.1 10^3/ul (0-0.6); ABS Lymphocytes 1.8 10^3/ul (1.0-4.8); ABS Monocytes 0.5 10^3/ul (0-0.8); ABS Neutrophils 4.8 10^3/ul (1.5-7.7); ABS Nucleated RBC 0 10^3/ul; Eosinophil % 1.4 % (0-6); Hematocrit 37 % (42-52); Hemoglobin 11.4 g/dl (14.0-18.0); Lymphocyte % 25.1 % (25-47); Mean Corpuscular HGB Conc 31 g/dl (31-36); Mean Corpuscular Hemoglobin 19 pg (27-31); Mean Corpuscular Volume 63 fL (80-94); Mean Platelet Volume 8.8 um3 (7.4-10.4); Nucleated Red Blood Cells % 0.1; Platelet Count 390 10^3/ul (150-450); Red Blood Count 5.91 10^6/ul (4.00-5.40); Red Cell Distribution Width 21 % (10.5-15); White Blood Count 7.3 10^3/ul (3.5-10.8)
[2018-07-09] MEDS ORDERED: Insulin REGULAR(*) 1 UNITS UNIT IV PUSH ONE (15:40)
[2018-07-09 15:41] LABS: INR 0.85 (0.77-1.02)
[2018-07-09 15:52] LABS: EGFR Non-African American 25.5 (>60)
[2018-07-09 16:58] LABS: Urine Appearance Clear; Urine Blood Negative (Negative); Urine Color Yellow; Urine Ketones Negative (Negative); Urine Protein Negative (Negative); Urine Specific Gravity 1.021 (1.010-1.030); Urine Urobilinogen Negative (Negative)
[2018-07-09 18:04] LABS: EGFR Non-African American 33.4 (>60)
[2018-07-09] MEDS ORDERED: Ondansetron INJ* 2 MG/ML VIAL IV PRN (18:11)
[2018-07-09] MEDS ORDERED: Acetaminophen TAB* 325 MG PO PRN (18:11)
[2018-07-09] MEDS ORDERED: Insulin GLARGINE(*) 1 UNITS UNIT SUBCUT SCH (18:20)
--- NOTE | 2018-07-09 18:47 | RAD ---
EXAM: MR Head Without Intravenous Contrast CLINICAL HISTORY: 42 years old, male; Signs and symptoms; Visual disturbance; Patient HX: Pt complaining of blurry vision since 06/29/18. Large occipital arachnoid cyst noted on CT; Additional info: Blurred vision, arachnoid cyst. Exam was ordered as w/wo contrast but pt had a gfr of 25.5 so we are unable to give him contrast dye- ordering dr yuan TECHNIQUE: Magnetic resonance images of the head/brain without intravenous contrast in multiple planes. COMPARISON: BRAIN WO CT BRAIN WO 06/26/2018 2:27 PM FINDINGS: Brain: There is a large approximately 8.7 x 5.4 cm CSF isointense cystic mass within the left posterior fossa. There is associated adjacent mass effect upon the left cerebellar hemisphere with rightward shift of the cerebellar vermis. Additionally there is no effacement of the fourth ventricle with associated mild hydrocephalus. No intracranial hemorrhage or extra-axial fluid collection. No white matter abnormalities. No restricted diffusion to suggest acute infarct. Bones/joints: Unremarkable. Sinuses: Unremarkable as visualized. No acute sinusitis. Mastoid air cells: Unremarkable as visualized. No mastoid effusion. Orbits: Unremarkable as visualized. IMPRESSION: 1. Approximately 8.7 x 5.4 cm CSF isointense cystic mass within the left posterior fossa, possibly arachnoid cyst. Associated adjacent mass effect upon the left cerebellar hemisphere with rightward shift of the cerebellar vermis. 2. 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 THIS REPORT CONTAINS FINDINGS THAT MAY BE CRITICAL TO PATIENT CARE. The findings were verbally communicated via telephone conference with JOSEPH GOMES at 6:47 PM EDT on 07/09/2018. The findings were acknowledged and understood.
[2018-07-09] MEDS ORDERED: Enalapril TAB* 5 MG PO ONE (19:00)
[2018-07-09] MEDS: Gabapentin CAP(*) 300 MG PO SCH (20:19)
[2018-07-09] MEDS: Insulin LISPRO* 1 UNITS UNIT SUBCUT SCH (20:46)
[2018-07-09] MEDS ORDERED: metFORMIN* 500 MG TAB PO SCH (21:00)
[2018-07-09] MEDS ORDERED: Mouth Piece, Nicotine* 1 EACH CARTRIDGE INH PRN ×2 (21:17)
[2018-07-09] MEDS ORDERED: Nicotine Inhaler* 10 MG AMP INH PRN (21:17)
--- NOTE | 2018-07-09 21:43 | HP ---
CC: Kim Wilkins NP * HISTORY AND PHYSICAL: DATE OF ADMISSION: 07/09/18 TIME OF EVALUATION: 06:20 p.m. PRIMARY CARE PROVIDER: Kim Wilkins NP CHIEF COMPLAINT: Blurry vision, lightheadedness, polyuria, "my diabetes is getting worse." HISTORY OF PRESENT ILLNESS: Mr. Hickman is a 42-year-old gentleman, who was recently diagnosed with diabetes. He presents with ongoing blurry vision. His vision is progressively getting worse. He understands his blood sugars are concerning. His blood sugar in the emergency room here was over 400. He had labs drawn, which showed acute renal failure with a creatinine at 2.74 with a baseline measured only 9 days prior to this presentation at 0.94. The patient is eating and drinking normally, but he is urinating in increasing amount. He was recently started on metformin with dose increased to the max dose of 100 twice daily. The patient was prescribed other oral hypoglycemics and I believe insulin, but these were denied by his insurance company citing the need to try metformin alone for several months. I note his hemoglobin A1c was recently checked on 06/30/18 (9 days ago) and was 14.9. The patient has received several liters of fluids and feels somewhat better. He had INVESTIGATIVE ASSISTANT imaging that demonstrated an 8.7 x 5.4 cm CSF isointense cystic mass within the left posterior fossa possibly an arachnoid cyst. There was associated adjacent mass effect on the left cerebellar hemisphere with rightward shift of the cerebellar vermis. Additionally, there was effacement of the 4th ventricle with associated mild hydrocephalus. Because of the uncertainty of the visual symptomatology being secondary to his worsening diabetes or secondary to the INVESTIGATIVE ASSISTANT mass, the patient is being placed on observation status for neurosurgical consultation. The patient's acute renal failure precludes gadolinium imaging. The patient is being aggressively hydrated and hopes to improve the patient's renal function so that he can have enhanced imaging if it is so needed. The patient is being placed on observation status under the direction of the hospitalist service with an intended Neurosurgery consult. AST MEDICAL HISTORY: 1. Newly diagnosed type 2 diabetes - hemoglobin A1c nearly 15. 2. Iron-deficiency anemia. 3. Insomnia. 4. Anxiety. ALLERGIES: APPLE, GOLDMAN, CODEINE. FAMILY HISTORY: Reviewed, but noncontributory in this presentation. 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 He has multiple children, but is engaged. He smokes occasionally and also drinks alcohol only occasionally. He has a history of heavier alcohol intake remotely. His urine toxicology was positive for cocaine. However, he denies intentionally using this. He recently had a vocation in [facility] and feels that perhaps he ate something or smoked something that had cocaine in it (though this would be inconsistent with the half-life of cocaine). REVIEW OF SYSTEMS: A review of 14 systems was generally negative except the pertinent positives mentioned above in the HPI and past medical history. Of note, the patient does have blurry vision. He has noted increased urination. He has no other urinary symptomatology. He has no focal weakness, sensory loss , proprioception or reflex deficiencies by his report. He has not had any recent febrile illnesses. He denies any skin rashes or lesions or endocrinopathies. The patient is generally healthy by his own description. He exercises frequently. PHYSICAL EXAMINATION ON ADMISSION GENERAL APPEARANCE: Middle-aged man, appears stated age, in no apparent distress. Awake, alert and oriented, answers questions appropriately. VITAL SIGNS: Temperature afebrile at 98.6 degrees Fahrenheit, pulse in the 70s to 80s, oxygen saturation high 90s on room air, blood pressure initially 148/88 , but rechecks in the 120s to 130s/60s to 70s. HEENT: No decrease in his visual monreal bilaterally. He can read typed fonts, but states that his vision is blurry. Extraocular muscles are intact. No cranial nerve deficits by my exam. Oropharynx is clear. Mucous membranes are moist. No posterior pharyngeal erythema or exudate. NECK: Supple. No elevated JVD. CHEST: Clear breath sounds anteriorly and posteriorly. HEART: No murmurs, rubs or gallops. Normal S1. Normal S2. ABDOMEN: Soft, nontender. Normoactive bowel sounds throughout. No abdominal pain. SKIN: Dry and intact. No rashes, lesions or breakdown. Scattered tatoos. NEUROLOGIC: His exam is nonfocal. I do not appreciate any distal neuropathy, sensory loss, loss of proprioception. I walked the patient in the room. He has good normal muscle tone throughout. LYMPH: No adenopathy. PSYCH: Normal affect. No acute anxiety or depression. ADMISSION DATA: Sodium modestly low at 133, potassium 4.0, chloride 97, bicarb 29, anion gap 7, BUN 13, creatinine 2.74 (baseline 0.9) , glucose elevated at 355. It was initially 375, lactic acid normal at 1.6, calcium 9.3, magnesium 2.0, total bilirubin 0.4, AST 19, ALT 19, alk phos 69, total CK 229. Troponin 0.00. CRP is normal. Albumin and globulin are preserved at 4.1 and 2.4 respectively. Urinalysis is negative except for positive urine glucose at greater than 500 mg/dL. The patient had a VBG drawn with a pH of 7.41, pCO2 47, pO2 33 (venous sample). Coagulation parameter is normal with an INR of 0.85. White blood cell count 7.3, hemoglobin 11.4, platelets 390. Toxicology showed presumptive positive of urine cocaine, otherwise negative. Serum alcohol less than 10 (negative). IMAGING: Brain MRI results as per the HPI - large 8.7 x 5.4 CSF isointense cystic mass in the left posterior fossa with effacement of the 4th ventricle, mild hydrocephalus, and rightward shift of the cerebellar vermis. IMPRESSION: Mr. Hickman is a 42-year-old gentleman with blurry vision attributable to either diabetes mellitus - type 2 or a posterior fossa INVESTIGATIVE ASSISTANT mass likely a subarachnoid cyst. Regardless of whether the patient's blurry vision is secondary to the diabetes, he clearly has uncontrolled diabetes mellitus. The patient's hemoglobin A1c is nearly 15 demonstrating chronically poor control. The patient is on metformin in the outpatient setting, but he needs more control than this alone. I am ordering subcu Lantus 30 units tonight as well as a lispro sliding scale with meals. The patient will receive diabetic education and I understand he is already schedule to see Dr. Daniel Richard, [facility] Endocrinology in the outpatient setting. My understanding is the patient has had oral hypoglycemics requested from his insurance company - [employer]. These were denied. However, I am going to re-appeal that, based on this hospitalization, the patient should be granted access to Lantus insulin in addition to metformin and possibly an additional agent as well. I leave this to Dr. Richard to specify which agents are most appropriate. In terms of the INVESTIGATIVE ASSISTANT mass, I am placing a Neurosurgery consultation now that the MRI is complete. It is entirely possible that his visual defects are secondary to posterior fossa mass effect and hydrocephalus, but there are no other neurological findings to corroborate the hypothesis that this is symptomatic INVESTIGATIVE ASSISTANT mass Specifically, I do not note any proprioceptive or coordination problem which would be characteristic of a posterior fossa mass that is impinging on the cerebellum. Mr. Hickman is also being started on an ALEXANDER inhibitor given he was initially hypertensive with his hyperglycemia. This can be titrated downward, but the renal protective effects with a diabetic with even a question of hypertension is a good idea. Check a cholesterol panel for overall cardiac risk. Consider aspirin therapy following resolution of INVESTIGATIVE ASSISTANT mass and a decision on how to address that. DVT prophylaxis with SYBIL stockings - hold anticoagulation for now. Full code. Surrogate decision maker is patient's father by the same name. NPO for now until further decisions are made with respect to his INVESTIGATIVE ASSISTANT imaging. TIME SPENT: Total time taken to admit Mr. Hickman was 75 minutes; greater than half the time spent at the bedside going over the history and physical and coordinating his care. [id number]/[facility] #: [id number] [facility]ITAL[facility]ante
--- NOTE | 2018-07-10 05:54 | CONS ---
CONSULTATION REPORT: DATE OF CONSULT: 07/09/18 HISTORY OF PRESENT ILLNESS: The patient is a very pleasant 42-year-old gentleman who was recently diagnosed with uncontrolled diabetes. The patient presented to the emergency room earlier this month with blurred vision. At that time, he was diagnosed with diabetes and was placed on metformin. The patient unfortunately was not able to obtain additional diabetic medication because of his insurance. He returns today because of persistent blurred vision. The patient on initial presentation had a CT scan revealing large occipital arachnoid cyst and was scheduled here for followup appointment with Dr. Brown in a week. The patient today reported that his vision is getting better but because of the persistence of his vision difficulties, he came to the emergency room. Request to see the patient by Dr. Palma, ED physician regarding the patient's previous CT scan, an MRI was ordered. The patient reported that his symptoms started few months ago with polyuria and polydipsia. He recently started experiencing change in his vision as being slightly blurry starting on 06/29/18. The patient initially presented to the emergency room on 06/26/18 and 06/27/18. He reports that overall his vision is getting better, he denies any recent injury, he denies any headache, denies any nausea or vomiting, denies any seizures, denies any hearing difficulties. He reports that he can read well and see the clock numbers on the opposite wall but the edges are not as sharp as they used to be. He reports that he has no weakness, numbness or tingling of his extremities. He reports that he has no difficulty with his dexterity. No difficulty with his ability to ambulate. No difficulty with his balance. He denies any urinary or GI incontinence. 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 He is accompanied today by his girlfriend and her daughter. The patient has 5 children. PAST MEDICAL HISTORY: Recently diagnosed diabetes, anxiety, panic disorder. PAST SURGICAL HISTORY: Negative. HOME MEDICATIONS: The patient is on, 1. Naproxen. 2. Metformin. ALLERGIES: APPLE, GOLDMAN and CODEINE. FAMILY HISTORY: Diabetes, ulcerative colitis. SOCIAL HISTORY: Tobacco positive, alcohol negative. Recreational drug use negative. The patient reports that he had recent travel to [facility] when he attended a wedding and he reports this may explain the findings on his urine test. PHYSICAL EXAM: The patient is not in acute distress. He is awake, alert, oriented x3. His pupils are equal and reactive. Cranial nerves II through XII are grossly intact. within normal limits. Motor 5/5 in all lower extremities. No pronator drift. Sensory is grossly intact to light touch. Deep tendon reflexes +1 bilaterally. No clonus. No Babinski. Jordan's negative. Straight leg raise negative in sitting position. DIAGNOSTIC STUDIES/LAB DATA: The patient had a CT scan of the brain in the previous visit revealing large occipital arachnoid cyst without any acute abnormalities. The patient also had an MRI of his brain today without contrast as his creatinine was elevated. This revealed again findings of a large occipital cyst with mild deviation of the vermis. There is a very mild ventriculomegaly but there is no evidence of transependymal flow. ASSESSMENT: The patient is a very pleasant 42-year-old gentleman with the history of recently diagnosed diabetes with complaints of blurred vision with the CT and MRI findings consistent with a large arachnoid cyst. PLAN: The patient at this point has been admitted for observation and control of his diabetes. Dr. Palma in the emergency room performed a funduscopic examination that revealed normal findings and excludes the presence of papilledema. She also contacted Ophthalmology, Dr. Morley who recommended an outpatient followup. The patient is scheduled for an MRI of the brain with contrast tomorrow. At this point, it is difficult to explain his visual symptoms based on his MRI imaging. Findings most likely represent a chronic/ congenital condition without any evidence of acute hydrocephalus as there is no evidence of transependymal flow. The patient will follow up with Dr. Brown as initially scheduled if his condition is stable. The patient reports that overall his vision is getting better at this point. We discussed also possibility of surgical intervention in the future if he develops hydrocephalus or has signs of increase intracranial pressure and we discussed surgical options with the patient. At this point, monitoring of his vital signs and neuro checks are important and we will review the imaging once it is available. Thank you very much for allowing us to participate in the care of this patient. Please do not hesitate to contact our office in case you have any further questions or concerns regarding the care of this patient. [id number]/[facility] #: [id number] KEM
[2018-07-10] MEDS ORDERED: Dextrose 50% Syringe 50 ML* 25 GM/50 ML SYRINGE IV PUSH PRN (07:27)
[2018-07-10] MEDS ORDERED: Omeprazole CAP* 20 MG PO SCH (07:30)
[2018-07-10 07:49] LABS: ABS Basophils 0.1 10^3/ul (0-0.2); ABS Eosinophils 0.2 10^3/ul (0-0.6); ABS Lymphocytes 2.2 10^3/ul (1.0-4.8); ABS Monocytes 0.5 10^3/ul (0-0.8); ABS Neutrophils 3.5 10^3/ul (1.5-7.7); ABS Nucleated RBC 0 10^3/ul; Eosinophil % 2.4 % (0-6); Hematocrit 35 % (42-52); Hemoglobin 10.5 g/dl (14.0-18.0); Lymphocyte % 33.9 % (25-47); Mean Corpuscular HGB Conc 30 g/dl (31-36); Mean Corpuscular Hemoglobin 19 pg (27-31); Mean Corpuscular Volume 63 fL (80-94); Mean Platelet Volume 8.4 um3 (7.4-10.4); Nucleated Red Blood Cells % 0; Platelet Count 343 10^3/ul (150-450); Red Blood Count 5.59 10^6/ul (4.00-5.40); Red Cell Distribution Width 21 % (10.5-15); White Blood Count 6.4 10^3/ul (3.5-10.8)
[2018-07-10 08:13] LABS: EGFR Non-African American 67.4 (>60)
[2018-07-10] MEDS ORDERED: Citalopram TAB* 40 MG PO SCH (09:00)
[2018-07-10] MEDS ORDERED: Lisinopril TAB* 10 MG PO SCH (09:00)
[2018-07-10] MEDS: Insulin LISPRO* 1 UNITS UNIT SUBCUT SCH ×6 (10:04→19:16)
[2018-07-10] MEDS: Gabapentin CAP(*) 300 MG PO SCH ×2 (10:05→18:29)
[2018-07-10] MEDS ORDERED: Gadoteridol* (CONTRAST) 279.3 MG/ML 10 ML IV SCH (10:17)
[2018-07-10 15:56] VITALS: BP 114/66
--- NOTE | 2018-07-10 16:02 | CONSULT ---
Consult Consult: Endocinology Inpatient Consult Note Date of Consult: 07/10/18 Reason for Consult: hyperglycemia ASSESSMENT: 42 yo with recent-onset diabetes presenting with polyuria/dipsia and blurred vision. The acuity of diabetes, presence of ketosis (elevated bOHB on 06.26.18) and favorable response to insulin during this admission suggest the possibility insulin-deficient diabetes -- this can be further evaluated with C- peptide from lab specimen and anti-GAD65 antibody. The presumed-positive cocaine may be an aggravating factor. His BG are now well-controlled without insulin and I suspect that he will do well on low-doses of insulin until he can follow-up in clinic. His estimated insulin requirement is approximately 0.4 units/kg/day PLAN: - send C-peptide and anti-GAD65 from admission blood specimen - start insulin glargine (Basaglar Kwikpen) 15 units once daily at discharge - start insulin aspart (Novolog Flexpen) 5 units with meals at discharge - start insulin aspart sliding scale with meals at discharge - 1 unit 201-250 - 2 units 251-300 - 3 units 301-350 - 4 units 351-400 - 5 units >400 - start Precision Xtra glucometer and strips at discharge - f/u with [facility] in 1 week
--- NOTE | 2018-07-10 16:20 | RAD ---
HISTORY: Large Arachnoid Cyst COMPARISONS: 6 July 09, 2018 TECHNIQUE: The following sequences were obtained of the head: Sagittal, axial, coronal T1 weighted images were obtained after contrast enhancement with a gadolinium-based intravenous contrast agent. FINDINGS: The study is read in conjunction with the MRI of July 09, 2018. Again noted is an extra axial lesion that is isointense to CSF within the posterior fossa. There is no appreciable mural nodularity or enhancement. Elsewhere, there is no abnormal enhancement. OTHER: None IMPRESSION: THE ARACHNOID CYST NOTED ON THE PREVIOUS EXAMINATION DOES NOT ENHANCE.
[2018-07-10] MEDS ORDERED: metFORMIN* 1,000 MG TAB PO SCH (17:00)
[2018-07-10] MEDS ORDERED: Insulin GLARGINE(*) 1 UNITS UNIT SUBCUT SCH ×3 (18:00)
--- NOTE | 2018-07-12 12:50 | DS ---
CC: Kim Wilkins NP; Dr. Daniel Richard; Dr. Sadiq Aguilar; Dr. Brown * DISCHARGE SUMMARY: DATE OF ADMISSION: 07/09/18 DATE OF DISCHARGE: 07/10/18 PRIMARY CARE PROVIDER: Kim Wilkins NP. MY ATTENDING WHILE IN THE HOSPITAL: Dr. Lima Martinez. * (DICTATED BY MARGARITO MAYS) CONSULTING PHYSICIANS: 1. Endocrinology, Dr. Daniel Richard. 2. Neurosurgeon, Dr. Sadiq Aguilar. PRIMARY DISCHARGE DIAGNOSES: 1. Blurred vision. 2. Parietal arachnoid cyst. 3. Diabetes mellitus, probable type 1. SECONDARY DISCHARGE DIAGNOSES: 1. Iron deficiency anemia, unknown cause. 2. Insomnia. 3. Anxiety. STUDIES DONE WHILE IN THE HOSPITAL: Brain MRI from 07/09/18 read as, approximately 8.7 x 5.4 cm CSF isointense cystic mass within the left posterior fossa, possibly an arachnoid cyst. There was associated adjacent mass effect on the left cerebellar hemisphere with rightward shift of the cerebellar vermis. Effacement of the 4th ventricle with associated mild hydrocephalus. Repeat brain MRI from 07/10/18, states the arachnoid cyst noted in the previous examinations did not enhance. MEDICATIONS AT DISCHARGE: 1. Omeprazole 40 mg p.o. daily. 2. Lexapro 20 mg p.o. daily. 3. Gabapentin 300 mg p.o. t.i.d. 4. Zofran 4 mg p.o. q.8 hours as needed. 5. Naproxen 500 mg p.o. b.i.d. as needed. 6. Tylenol 650 mg q.4 hours as needed. 7. Glucometer test strips and pen needles. 8. Insulin glargine 15 units subcutaneous daily. 9. NovoLog FlexPen 5 units daily with meals. 10. NovoLog FlexPen sliding scale as described. HOSPITAL COURSE: This is a brief summary of the patient's presentation. For more details, please see the history and physical from Dr. Eduardo Reid, On 07/09/18. In brief, the patient is a 42-year-old male with past medical history significant for above, who was seen in the emergency department twice for blurry vision and had had a brain CT which showed an arachnoid cyst. The patient at that time was scheduled for a followup with Dr. Daniel Richard and Dr. Brown as outpatient to discuss his elevated hemoglobin A1c which was deemed to be the probable cause of his blurry vision as well as his probable arachnoid cyst. The patient came back to the emergency department on the date of admission due to worsening blurry vision, lightheadedness, and polyuria. The patient was admitted to the hospital for concern for this mass and elevated glucose. The patient's blurry vision began to improve as his blood sugar was decreased. The patient had an elevated creatinine at 2.74, likely prerenal, which decreased to 1.18 quickly with rehydration. The patient's repeat hemoglobin A1c was 13.8. The patient was given 30 units Lantus and started on sliding scale insulin as well as carb counting. This quickly decreased the patient's preprandial blood glucose to 90 on 07/10/18 and this remained controlled throughout the remainder of hospitalization. The patient was seen in consultation by Dr. Sadiq Aguilar who believed his arachnoid cyst was unlikely the cause of the patient's blurred vision but he recommended a brain MRI with contrast as above which was shown as above and needed no further intervention at this time. The patient was seen in consultation by Dr. Daniel Richard, who believed this presentation due to his acute onset and prompt response to insulin likely represented a type 1 diabetic. A C-peptide and a GAD65 were sent out from the patient's initial admitting labs and the patient was recommended to be started on 15 units of Lantus daily as well as 5 units NovoLog meals on a sliding scale which was described in detail to the patient. Title I Teacher's copy was provided. The patient's blurry vision almost resolved on 07/10/18. He was stable enough for discharge. PHYSICAL EXAMINATION ON DAY OF DISCHARGE: General: The patient is a 42-year- old male who appears his stated age and is sitting comfortably in bed, in no acute distress. HEENT: Head: Normocephalic, atraumatic. Sclerae intact. No conjunctival injection. Nasal mucosa moist. Oral mucosa moist. No pharyngeal erythema, discharge, or exudates. Vital Signs: At the time of discharge, temperature 98.1, pulse rate 56, respiratory rate 18, oxygen saturation 100% on room air, blood pressure 114/66. Neck: Supple, nontender. No lymphadenopathy. No carotid bruit auscultated. No JVD. Cardiac: Regular rate and rhythm. No clicks, murmurs, gallops, or rubs. Pulses 2+ bilaterally in dorsalis pedis, posterior tibial, and radial areas. Respiratory: Clear to auscultation bilaterally. No wheezes, rales, or rhonchi. Good air exchange bilaterally. Abdomen: Soft, nontender, nondistended. Bowels sounds present. Normoactive in all 4 quadrants. No hepatosplenomegaly, no abdominal bruits auscultated. No hepatojugular reflux. Genitourinary: No suprapubic tenderness or CVA tenderness. Skin: Clean, dry, intact. No rash. Neuro: Cranial nerves II through XII intact. No focal deficits. No vision cuts. Slight blurred vision. No other visual defects. Normal gait. No other neurologic deficit. Psychiatric: Pleasant and cooperative. LABORATORY DATA ON DAY OF DISCHARGE: White blood cell count 6.4, hemoglobin 10.5, platelet count 343. Sodium 140, potassium 4.0, chloride 106, carbon dioxide 28, anion gap 6, BUN 13, creatinine 1.18. Glucose 102. Calcium 8.7, triglycerides 111, cholesterol 184, LDL cholesterol 121, HDL cholesterol 41.1. DISCHARGE PLAN: The patient will be discharged to home. The patient will follow up with Dr. Richard within 1 week. The patient will follow up with primary care provider within 1 week for general medical management. The patient while he follows with Dr. Richard, he will bring his blood glucose values. The patient was instructed on the use of insulin while in the hospital. The patient has been prescribed a glucometer as well as insulin as above based on his hospital readings and his diagnosis of type 1 diabetes. The patient will have further elicitation of lab work with Dr. Richard's office. The patient had a GAD65 and a C -peptide sent out which are pending at this time. The patient is to return to the hospital for severe hyperglycemia or call Dr. Richard's office for insulin instructions. The patient is to follow up with Dr. Brown within one week, to keep an appointment which has already been scheduled, to discuss his arachnoid cyst. There is no urgent need for intervention as this is unlikely the cause of his blurred vision, which was likely related to his severe hyperglycemia. The patient should return to the hospital for other alarming symptoms, such as chest pain, shortness of breath, or passing out. The patient should follow routinely with his primary care provider for general medical management. The patient should have a consistent carbohydrate diet, check his blood sugar every meal. The patient should do activities as tolerated. TIME SPENT: Approximately 60 minutes was spent on the discharge of this patient , 30 of which was spent [id number] with the patient, obtaining history and physical and discussing treatment plan. MARGARITO MAYS [id number]/[facility] #: [id number] [facility]
== END 2018-07-10 19:15 | disposition home or self-care (01) ==
LOC: ED 12:18 → MED 18:28
PROVIDERS: ADMIT Internal Medicine; ATTEND Internal Medicine
DX: H53.8 Other visual disturbances (principal); G93.0 Cerebral cysts; E11.9 Type 2 diabetes mellitus without complications; D50.9 Iron deficiency anemia, unspecified; G47.00 Insomnia, unspecified; F41.9 Anxiety disorder, unspecified; Z79.899 Other long term (current) drug therapy; Z79.4 Long term (current) use of insulin
CPT/HCPCS: 36415; 70551; 70552; 80048; 80053; 80061; 80307; 80320; 81003; 82550; 82803; 83036; 83605; 83735; 84484; 84681; 85025; 85610; 85730; 86140; 86341; 99283; A9270-GY; A9579; G0378; G0480

== ENCOUNTER 2018-11-17 08:14 | Emergency (ER) | payer OTHER ==
--- OUTSIDE RECORDS SUMMARY | 2018-11-17 08:26 | XMS REPORT | Continuity of Care Document ---
:1975 External Reference #:[id number] Author Name Beatrice Borges Care Team Providers Name Role Phone Jacques Edmonds MD Primary Care Physician Unavailable Payers Type Date Identification Numbers Payment Provider Subscriber Policy Number: [id number] Alton Hickman PayID: [id number] [address] [place] [address] Effective: 2016 Policy Number: [id number] BS Pastor Hickman Expires: 2018 Group Number: [id number] [address] PayID: [id number] [place] [address] Expires: 2016 Policy Number: [id number] BS Facets Mary Keene PayID: [id number] [address] [place] [address] Advance Directives Description No Information Available Problems Date Description Provider Status Onset: 01/14/2017 Brachial neuritis Abdirashid Brown M.D. Active Onset: 01/14/2017 Shoulder joint pain Abdirashid Brown M.D. Active Family History Date Family Member(s) Problem(s) Comments General Diabetes General Arthritis General Prostate Cancer Siblings 5 4 sisters and 1 brother. 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 cigarettes/day) Exercise Type/Frequency Exercises regularly gym 2-3 days a week Allergies, Adverse Reactions, Alerts Date Description Reaction Status Severity Comments 08/04/2014 Codeine syncope Active Severe 07/17/2018 Apple Allergenic Extract swelling of face, lips, Active Mild throat 07/17/2018 Breaux Allergenic Extract swelling face, lips, Active Mild throat 07/17/2018 Avocado Allergenic Extract tingling Active 07/17/2018 Kiwi Fruit Allergenic tingling Active Extract Medications Medication Date Status Form Strength Qnty SIG Indications Ordering Provider Oxycodone-Aceta 11/13 Active Tablets 5-325mg 6tabs 1 tab by M19.222 Rosanna minophen mouth every Foster, 4-6 hours as M.D. needed pain Accu-Check 07/17 Active Misc 150un check 4 times E11.65 Sanchez Radha Chem /2017 its daily before MD Jose Manuel Strips insulin injection Metformin HCL 07/17 Active Tablets 500mg 120ta 2 tablets am E11.65 Sanchez ER (Mod) ER 24HR bs and 2 tablets MD Jose Manuel pm Precision Xtra 07/17 Active Device 1unit use as needed Sanchez s for glucose MD Jose Manuel and ketone monitoring Precision Xtra 07/17 Active Strips 100un use 4 times Sanchez Blood Glucose its daily and as MD Jose Manuel Test Strips needed for glucose testing Lexapro Active Tablets 20mg 30tab 1 tablets by Unknown /0000 s mouth every day Gabapentin Active Tablets 600mg 1 tablet 3 Rising,William /0000 times daily LIZANDRO subramanian Omeprazole Active Capsules 40mg 1 by mouth Unknown /0000 DR every day before a meal Lancets 28G Active Misc 28G use with one Unknown /0000 touch meter, check bs 3-4 times daily Acetaminophen Active Tablets 325mg 2 tablets by Unknown /0000 mouth every 6 hours as needed for pain/fever Pen Taylor Active Misc 31G X 8 use with Unknown /0000 mm basaglar injection daily (vavation override-31+d ay trip) Medrol 12/31 Hx Tablets 4mg 21tab take as M47.22 Thaddeus s directed per Amarjit Messer MD 01/14 Xanax Hx Tablets 2mg 30tab 1 by mouth as Unknown /0000 s needed - 06/10 Omeprazole Hx Capsules 20mg 90cap 1 by mouth Unknown /0000 DR flor every day - 09/08 Fluocinonide Hx Cream 0.05% 30uni apply bid as Unknown /0000 ts needed - 09/08 Zofran Hx Tablets 4mg take 1 by Unknown /0000 mouth twice a - day as needed 07/16 for nausea Metformin HCL Hx Tablets 500mg 2 tablets by Unknown /0000 mouth twice a - day 07/10 Freestyle Lite Hx Device test blood Unknown Blood Glucose /0000 sugar 3 times Monitoring - daily and as System 07/17 Freestyle Lite Hx Strips test up to Unknown Test /0000 1-2 times a - day dx code: 07/[address] Hx Tablets 500mg take 1 tab by Unknown /0000 DR mouth twice - daily as 07/16 Precision Xtra Hx Device use with Unknown Monitor /0000 glucose/keton - e strips 07/17 Novolog Flexpen Hx Solution 100Unit/M up to 5 units Unknown /0000 Pen-Injec L w/ meals, - t sliding scale 08/09 1 unit /2018 201-250, 2 units 251-300, 3 units 301-350, 4 units 351-400, 5 units >400. Basaglar Hx Solution 100Unit/M 15 units sc Unknown Kwikpen /0000 Pen-Injec L daily - t 08/13 Novolog Flexpen 00 Hx Solution 100Unit/M inject Unknown /0000 Pen-Injec L according to - t sliding scale 07/15 maximum daily dose=20 units Medications Administered in Office Medication Date Status Form Strength Qnty SIG Indications Ordering Provider Depomedrol Administered Injection Rosanna 40MG Brenda Foster M.D. Depomedrol Administered Injection Rosanna 40MG 018 Caitlin Foster Depomedrol Administered Injection Rosanna 80MG 014 Caitlin Foster Immunizations Description No Information Available Vital Signs Date Vital Result Comment 11/13/2018 9:35am Height 66 inches 5'6" Weight 185.00 lb BP Systolic 134 mmHg BP Diastolic 82 mmHg Respiratory Rate 16 /min Body Temperature 95.8 F Pain Level 6 BMI (Body Mass Index) 29.9 kg/m2 10/01/2018 1:28pm Height 66 inches 5'6" Weight 190.00 lb w/ shoes Heart Rate 91 /min BP Systolic Sitting 140 mmHg BP Diastolic Sitting 80 mmHg BMI (Body Mass Index) 30.7 kg/m2 08/13/2018 1:29pm Height 66 inches 5'6" Weight 184.00 lb BP Systolic 138 mmHg BP Diastolic 94 mmHg Respiratory Rate 16 /min Body Temperature 96.1 F Pain Level 8 BMI (Body Mass Index) 29.7 kg/m2 08/13/2018 8:48am Height 66 inches 5'6" Weight 184.00 lb w/ shoes Heart Rate 80 /min BP Systolic Sitting 125 mmHg BP Diastolic Sitting 75 mmHg BMI (Body Mass Index) 29.7 kg/m2 08/06/2018 2:04pm Height 66 inches 5'6" Heart Rate 72 /min BP Systolic Sitting 112 mmHg BP Diastolic Sitting 70 mmHg Respiratory Rate 16 /min Body Temperature 96.9 F 07/17/2018 9:09am Height 66 inches 5'6" Weight 176.00 lb w/ shoes Heart Rate 87 /min BP Systolic Sitting 114 mmHg BP Diastolic Sitting 72 mmHg BMI (Body Mass Index) 28.4 kg/m2 06/25/2018 1:45pm Height 66 inches 5'6" Weight 175.00 lb Heart Rate 76 /min BP Systolic 118 mmHg BP Diastolic 78 mmHg Respiratory Rate 12 /min Pain Level 7 BMI (Body Mass Index) 28.2 kg/m2 06/11/2018 9:02am Height 66 inches 5'6" Weight 174.75 lb Heart Rate 76 /min BP Systolic 120 mmHg BP Diastolic 70 mmHg Respiratory Rate 14 /min Pain Level 9 BMI (Body Mass Index) 28.2 kg/m2 01/14/2017 3:33pm Height 66 inches 5'6" Weight 191.00 lb Heart Rate 78 /min BP Systolic Sitting 158 mmHg BP Diastolic Sitting 88 mmHg Pain Level 7 BMI (Body Mass Index) 30.8 kg/m2 12/31/2016 10:19am Height 66 inches 5'6" Weight 196.00 lb Heart Rate 88 /min BP Systolic Sitting 124 mmHg BP Diastolic Sitting 62 mmHg Respiratory Rate 14 /min Body Temperature 97.6 F Pain Level 7 BMI (Body Mass Index) 31.6 kg/m2 09/08/2014 1:53pm Height 66 inches 5'6" Weight 198.00 lb Heart Rate 80 /min BP Systolic Sitting 122 mmHg BP Diastolic Sitting 80 mmHg BMI (Body Mass Index) 32.0 kg/m2 Results Test Date Facility Test Result H/L Range Note Laboratory test finding 10/01/2018 [facility] Glucose Random 148 Hemoglobin A1c 7.0 5-7 Glucose 10/01/2018 [facility] Glucose (SEE NOTE) High [address] [place] [address] 2HR [phone] Laboratory test 08/13/2018 [facility] Glucose 118 mg/dL High 70-[address] [place] [address] [phone] C-Peptide 3.0 ng/mL 1.1 - 4.4 2 Lipid Profile 08/13/2018 [facility] Triglycerides 146 mg/dL 3 (Trig/Chol/HDL) [address] [place] [address] [phone] Cholesterol 233 mg/dL 4 HDL Cholesterol 71.6 mg/dL 5 LDL Cholesterol 132 mg/dL 6 Urine Microalbumin 08/13/2018 [facility] Ur Microalbumin 119.[address] (mg/L) [place] [address] [phone] Urine Creatinine 145.22 mg/dL Urine Microalbumin/Creatinine 82.0 High <31 Diabetes 08/13/2018 [facility] Diabetes See Comment 7 Mellitus Type [address] [place] [address] [phone] Anti Elan 65 Antibody 0.05 nmol/L Abnormal <=0.02 8 Islet Antigen 2 Antibody 0.00 nmol/L <=0.02 9 Zinc Transporter 8 (ZnT8) Ab <15.0 U/mL <15.0 10 Insulin Antibody 0.00 nmol/L 0.00-0.02 11 Laboratory test 08/13/2018 [facility] Glucose Random 143 finding Laboratory test 07/17/2018 [facility] Glucose Random 153- fasting finding Laboratory test 07/17/2018 [facility] TSH (Thyroid 0.82 mcIU/mL N 0.34-5.[address] Stim Horm) 0 [place] [address] [phone] Basic Metabolic 07/17/2018 [facility] Sodium 138 mmol/L N 135- 145 Panel [address] [place] [address] [phone] Potassium 4.9 mmol/L N 3.5-5.0 Chloride 104 mmol/L N 101-111 Co2 Carbon Dioxide 28 mmol/L N 22-32 Anion Gap 6 mmol/L N 2-11 Glucose 160 mg/dL High 70-100 Blood Urea Nitrogen 24 mg/dL N 6-24 Creatinine 1.06 mg/dL N 0.67-1.17 BUN/Creatinine Ratio 22.6 High 8-20 Calcium 9.9 mg/dL N 8.6-10.3 Egfr Non- 76.3 >60 Egfr 92.3 >60 12 Laboratory test 07/17/2018 [facility] Insulin Level 12.5 mcIU/ mL N 2.0-16.0 finding [address] [place] [address] [phone] C-Peptide 1.9 ng/mL 1.1 - 4.4 13 1 GLU Fast 136 H Col: 10/01/18 1001 GLU 2HR 118 Col: 10/01/18 1202 GTT Interp Col: 10/01/18 1001 Oral Glucose Tolerance Test (OGTT) Levels applicable except during . Sample drawn 2 hours after a 75-gram glucose drink. GLUCOSE LEVEL INDICATION Less than 140 mg/dL Normal glucose tolerance From 140 to 200 mg/dL Impaired glucose tolerance Over 200 mg/dL Diabetes (on more than one testing occasion) 2 Test Performed by: [facility] [address] [place] [address] 3 Desirable: <150 Borderline High: 150-199 High: 200-499 Very High: >500 4 Desirable: <200 Borderline High: 200-239 High: >239 5 Low: <40 Desirable: 40-60 High: >60 6 Desirable: <100 Near Optimal: 100-129 Borderline High: 130-159 High: 160-189 Very High: >189 7 The following antibody was identified: Glutamic Acid Decarboxylase. * This profile is consistent with a diagnosis of type 1 diabetes mellitus. * When found in isolation, the sensitivities of these autoantibodies for type 1 diabetes are 74% (GAD65 antibody), 75% (IA-2 antibody), 69% (insulin antibody) and 69% (ZnT8). When all 4 antibodies are tested for, and at least 1 autoantibody is detected, the combined sensitivity for type 1 diabetes is 98%, with a specificity of 98-100%. * These autoantibodies may also be detectable before the clinical onset of diabetes. The cumulative risk of a seropositive patient developing diabetes is 17% for 1 antibody, 39% for 2 antibodies, 70% for 3 antibodies, and 80% for 4 antibodies. * References: Christianne GONSALEZ. Clinical applications of diabetes antibody testing. The Journal of clinical endocrinology and metabolism 2010;95:25-33. * Kareem M, Ciara P, Peter M, Sparkle R, Brent M, Ofelia L, Froilan J, Jamin M, Stevo Verma, Eric SUN, Tello Dillon. 3 Screen islet cell autoantibody JC: A sensitive and specific JC for the combined measurement of autoantibodies to ELAN, to IA-2 and to ZnT8. Clin Dl Acta. 2016;462:60-64. * Christianne GONSALEZ, Stevo Verma, Ajit AJ, Tayler S, Vasiliy GF, Yue EA. Prediction of IDDM in the general population: strategies based on combinations of autoantibody markers. Diabetes. 1997;46:1701-10. * 8 ADDITIONAL INFORMATION This test was developed and its performance characteristics determined by [facility] in a manner consistent with CLIA requirements. This test has not been cleared or approved by the U.S. Food and Drug Administration. 9 ADDITIONAL INFORMATION This test was developed and its performance characteristics determined by [facility] in a manner consistent with CLIA requirements. This test has not been cleared or approved by the U.S. Food and Drug Administration. 10 ADDITIONAL INFORMATION This test has been modified from the vendor management specialist's instructions. Its performance characteristics were determined by [facility] in a manner consistent with CLIA requirements. This test has not been cleared or approved by the U.S. Food and Drug Administration. Test Performed by: [facility] - [address] [address] 11 ADDITIONAL INFORMATION This test was developed and its performance characteristics determined by [facility] in a manner consistent with CLIA requirements. This test has not been cleared or approved by the U.S. Food and Drug Administration. 12 Because ethnic data is not always readily available, this report includes an eGFR for both -Americans and non- Americans. The National Kidney Disease Education Program (NKDEP) does not endorse the use of the MDRD equation for patients that are not between the ages of 18 and 70, are , have extremes of body size, muscle mass, or nutritional status, or are non- or non-. According to the National Kidney Foundation, irrespective of diagnosis, the stage of the disease is based on the level of kidney function: Stage Description GFR(mL/min/1.73 m(2)) 1 Kidney damage with normal or decreased GFR 90 2 Kidney damage with mild decrease in GFR 60-89 3 Moderate decrease in GFR 30-59 4 Severe decrease in GFR 15-29 5 Kidney failure <15 (or dialysis) 13 Test Performed by: [facility] - [facility] [address] [place] [address] Procedures Date Code Description Status 11/13/2018 Inject/Drain Joint/Bursa Intermediate W/O US Completed 08/13/201847516 Inject/Drain Joint/Bursa Major W/O US Completed 06/25/2018 Inject/Drain Joint/Bursa Intermediate W/O US Completed 03/25/2018 15370 Endoscopy Upper GI Biopsy Completed 02/17/2018 53441 Endoscopy Upper GI Biopsy Completed 09/08/201453013 Inject/Drain Joint/Bursa Intermediate W/O US Completed Encounters Type Date Location Provider Dx Diagnosis Office Visit 10/01/2018 Samra Yun and Daniel Richard MD Z79.84 nursing home (current) 1:40p [facility] use of oral hypoglycemic drugs E11.69 Type 2 diabetes mellitus with other specified complication R73.09 Other abnormal glucose Office Visit 08/13/2018 [facility] Jose Manuel, E10.9 Type 1 diabetes 8:40a [facility] of [facility] mellitus without [facility] complications Office Visit 08/06/2018 [facility], G93.0 Cerebral cysts 1:45p [facility] PA-C Office Visit 07/17/2018 [facility] Daniel Richard, E11.65 Type 2 diabetes 9:00a [facility] mellitus with [facility] hyperglycemia Office Visit 07/10/2018 [facility] Jose Manuel, E11.65 Type 2 diabetes 9:34a [facility] mellitus with [facility] hyperglycemia Office Visit 07/10/2018 [facility] Florin H53.8 Other visual 11:28a Assoc,MARGARITO Paez disturbances Hospitalists G93.0 Cerebral cysts E10.9 Type 1 diabetes mellitus without complications D64.9 Anemia, unspecified F51.01 Primary insomnia F41.9 Anxiety disorder, unspecified Office Visit 07/09/2018 12:00p Neurosurgery Vassilios G93.0 Cerebral cysts [facility] MD Lauren H53.8 Other visual disturbances Office Visit 07/09/2018 [facility] Eduardo E11.39 Type 2 diabetes w 11:28a Assoc,hubert Reid M.D. ot diabetic Hospitalists ophthalmic complication G93.89 Other specified disorders of brain Office Visit 06/25/2018 1:30p Orthopedic Rosanna M67.322 Transient Services Of Caitlin Foster synovitis, left C.M.A. elbow Office Visit 06/11/2018 8:30a Orthopedic Rosanna M25.522 Pain in left Services Of Caitlin Foster elbow C.M.A. 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 cervical region M25.512 Pain in left shoulder Office Visit 12/31/2016 Orthopedic Thaddeus Blanca M47.22 Other spondylosis 10:30a Services Of MD Ayde with radiculopathy, C.M.A. cervical region Office Visit 09/08/2014 Orthopedic Rosanna 715.12 Osteoarthrosis 1:45p Services Of Michael Foster M.D. Localized Prim AT [place] [facility] [place] Plan of Treatment Future Appointment(s):04/01/2019 11:00 am - Daniel Richard MD at [facility]11/13/2018 - Rosanna Foster M.D.M19.222 Secondary osteoarthritis, left elbowNew Medication:Oxycodone-Acetaminophen 5-325 mg - 1 tab by mouth every 4-6 hours as needed painFollow up:Follow up: As needed
[2018-11-17] MEDS ORDERED: Ondansetron INJ* 2 MG/ML VIAL IV ONE ×2 (08:43→12:46)
[2018-11-17] MEDS ORDERED: NS 0.9% 1000 ML** 1,000 ML IV ONE (08:43)
[2018-11-17] MEDS ORDERED: Morphine VIAL* 10 MG/ML 1 ML VIAL IV ONE (09:03)
--- NOTE | 2018-11-17 09:16 | ED ---
Abdominal Pain/Male - HPI Summary HPI Summary: Patient is a 42-year-old male with a history of anxiety, kidney stones and well controlled diabetes presenting to the ED with bilateral lower quadrant pain, nausea, vomiting and subjective fever since yesterday. He states symptoms began at 5:30 PM with nausea, vomiting. He then developed bilateral abdominal pain, worse to the right side. Endorses one episode of diarrhea this morning. Pain is currently rated an 8/10 constant and aching. Last episode of emesis was 2 hours SEAMAN. Medications include gabapentin, Lexapro and metformin. He does not recall his last A1c, but states he was previously diagnosed with diabetes type 2, however this is well controlled with medications and diet. He states he is otherwise healthy. Denies any abdominal surgical history. - History of Current Complaint Chief Complaint: EDNauseaVomitDiarrh Stated Complaint: GENERAL ILLNESS Time Seen by Provider: 11/17/18 08:24 Hx Obtained From: Patient Onset/Duration: Gradual Onset Timing: Constant Severity Initially: Moderate Severity Currently: Moderate Pain Intensity: 8 Pain Scale Used: 0-10 Numeric Location: Other - Left lower quadrant and right lower quadrant; nonradiating Radiates: No Character: Sharp, Cramping Aggravating Factor(s): Nothing Associated Signs And Symptoms: Positive: Decreased Appetite, Nausea, Vomiting, Diarrhea - Risk Factors Testicular Torsion: Negative Cardiac Risk Factors: Negative - Allergies/Home Medications Allergies/Adverse Reactions: Allergies Allergy/AdvReac Type Severity Reaction Status Date / Time apple Allergy Mild Swelling Verified 11/17/18 08:19 Of Face,Lips,& Throat garzon Allergy Mild Swelling Verified 11/17/18 08:19 Of Face,Lips,& Throat codeine AdvReac Severe See Comment Verified 11/17/18 08:19 avocado Allergy Tingling Uncoded 07/21/18 10:30 kiwi Allergy Tingling Uncoded 07/21/18 10:30 Home Medications: Home Medications Metformin HCl [Metformin HCl ER] 10,000 mg PO BID 11/17/18 [History Confirmed ] PMH/Surg Hx/FS Hx/Imm Hx Previously Healthy: Yes Endocrine/Hematology History: Reports: Hx Diabetes Denies: Hx Thyroid Disease Cardiovascular History: Denies: Hx Hypertension, Hx Pacemaker/ICD Respiratory History: Denies: Hx Asthma, Hx Chronic Obstructive Pulmonary Disease (COPD) GI History: Reports: Hx Ulcer History: Denies: Hx Renal Disease Sensory History: Reports: Hx Contacts or Glasses - readubg Denies: Hx Hearing Aid Opthamlomology History: Reports: Hx Contacts or Glasses - readubg Neurological History: Reports: Other Neuro Impairments/Disorders - occipital arachnoid cyst on CT 06/26/18 Psychiatric History: Reports: Hx Anxiety, Hx Panic Disorder - Surgical History Surgery Procedure, Year, and Place: None - Immunization History Hx Pertussis Vaccination: No Immunizations Up to Date: Yes Infectious Disease History: No Infectious Disease History: Denies: Hx Hepatitis, Hx Human Immunodeficiency Virus (HIV), Traveled Outside the [place] in Last 30 Days - Family History Known Family History: Positive: Diabetes - grandmother, Other - Ulcerative colitis Negative: Hypertension - Social History Occupation: Employed Full-time Lives: With Family Alcohol Use: None Hx Substance Use: No Substance Use Type: Reports: None Substance Use Comment - Amount & Last Used: Pt denies, but toxicology indicates cocaine use Hx Tobacco Use: Yes Smoking Status (MU): Heavy Every Day Tobacco Smoker Type: Cigarettes Amount Used/How Often: 3/4 PPD Review of Systems Positive: Fatigue, Skin Diaphoresis Negative: Photophobia, Blurred Vision Negative: Dental Pain, Sore Throat Negative: Palpitations, Chest Pain Negative: Shortness Of Breath, Cough Positive: Abdominal Pain, Vomiting, Diarrhea, Nausea Positive: see HPI. Negative: burning, dysuria, discharge Negative: Arthralgia, Myalgia Skin: Negative Neurological: Negative All Other Systems Reviewed And Are Negative: Yes Physical Exam - Summary Physical Exam Summary: Appearance: WDW, comfortable, pleasant, alert Skin: Soft dry skin, no lesions. Nailbeds pink with no cyanosis or clubbing. No petechia noted. Eyes: GURMEET, EOMI, Conjunctiva pink with no redness or exudates. Mouth: Dentition without lesions. Moist mucosa Neck: Full range of motion. Palpable thyroid. Trachea at midline. No lymphadenopathy. Pulm: Chest symmetrical expansion. No deformities on posterior chest wall. Lungs clear to auscultation and percussion, without adventitious sounds. CV: No JVD. No deformities on anterior chest wall. Heart sounds. RRR. exam not performed GI: Bowel sounds WNL in all 4 quadrants. Positive obturator, negative Edmonds's , pain over McBurney's point. Tenderness to the bilateral lower quadrants on light palpation. No peritoneal signs, no ascites or fluid collections, no rigid abdomen. Musculoskeletal: Flexion and extension of neck without limitations. ROM WNL in all extremities. No deformities noted. Pulses +2 bilaterally. Neuro: Motor strength is 5/5 in upper and lower extremities bilaterally. A&OX3 Psych: Logical, coherent Triage Information Reviewed: Yes Vital Signs On Initial Exam: Initial Vitals Temp Pulse Resp BP Pulse Ox 98.2 F 89 16 162/98 100 11/17/18 08:17 11/17/18 08:17 11/17/18 08:17 11/17/18 08:17 11/17/18 08:17 Vital Signs Reviewed: Yes Appearance: Positive: Well-Appearing, Well-Nourished Skin: Positive: Warm, Skin Color Reflects Adequate Perfusion Head/Face: Positive: Normal Head/Face Inspection Eyes: Positive: EOMI, GURMEET, Conjunctiva Clear Neck: Positive: Supple, No Lymphadenopathy Respiratory/Lung Sounds: Positive: Clear to Auscultation, Breath Sounds Present Cardiovascular: Positive: RRR, Pulses are Symmetrical in both Upper and Lower Extremities Abdomen Description: Positive: Other: Musculoskeletal: Positive: Normal, Strength/ROM Intact Neurological: Positive: Speech Normal Diagnostics - Vital Signs Vital Signs Temp Pulse Resp BP Pulse Ox 11/17/18 08:17 98.2 F 89 16 162/98 100 - Laboratory Result Diagrams: 11/17/18 10:28 11/17/18 10:27 Lab Statement: Any lab studies that have been ordered have been reviewed, and results considered in the medical decision making process. Abdominal Pain Fem Course/Dx - Course Course Of Treatment: Patient is evaluated for bilateral lower quadrant pain associated with nausea, vomiting. Patient does admit to eating chicken at a restaurant yesterday and symptoms began a few hours afterwards. He endorses several episodes of vomiting, and one episode of diarrhea. Denies any subjective fevers or sweats or chills. He states he is otherwise healthy. On physical examination, patient has bilateral lower quadrant tenderness, positive Rovsing's, tenderness over McBurney's point, positive psoas, positive obturator. Pain on palpation is worse to the right side and is exquisitely tender. There are no obvious peritoneal signs. There is no evidence of ascites patient denies history of liver pathologies or cirrhosis. Negative Edmonds's. Lungs CTA. RRR. Patient appears otherwise well, nondiaphoretic and nontoxic in appearing. He is given 4 mg Zo[address] and morphine. CT abdomen pelvis obtained: Negative for appendicitis. Discussed this with patient. He states he is feeling improved with Zofran and morphine. Likely this is a gastroenteritis versus food poisoning versus other etiology. Patient is stable and vital signs are stable. He will be sent home with return precautions. Note given for work. He is encouraged fluids, given Zofran and tramadol for nausea and pain control. - Diagnoses Differential Diagnosis/HQI/PQRI: Appendicitis, Bowel Obstruction, Urinary Tract Infection, Other - Food poisoning, gastroenteritis Provider Diagnoses: Nausea & vomiting, Diarrhea Discharge - Sign-Out/Discharge Documenting (check all that apply): Patient Departure - Discharge Plan Condition: Stable Disposition: HOME Prescriptions: Ondansetron ODT TAB* [Zofran 4 MG Odt TAB*] 4 mg PO Q6H PRN #12 tab.odt MDD 4 PRN Reason: Nausea traMADol TAB* [Ultram*] 50 mg PO Q8H PRN #12 tab MDD 3 PRN Reason: Pain Patient Education Materials: Food Poisoning (ED) Forms: *Work Release Referrals: Kim Wilkins NP [Primary Care Provider] - Additional Instructions: Please follow up with PCP Takes Zofran and tramadol as needed for nausea and pain If you develop any worsening symptoms, return to the ED Use heat to the area of the abdomen for comfort Drink plenty of water and Gatorade - Billing Disposition and Condition Condition: STABLE Disposition: Home
[2018-11-17 10:43] LABS: Urine Appearance Clear; Urine Bilirubin Negative (Negative); Urine Blood Negative (Negative); Urine Color Straw; Urine Glucose Negative (Negative); Urine Ketones Negative (Negative); Urine Nitrite Negative (Negative); Urine Protein Negative (Negative); Urine Specific Gravity 1.003 (1.010-1.030); Urine Urobilinogen Negative (Negative)
[2018-11-17 11:36] LABS: ABS Basophils 0 10^3/ul (0-0.2); ABS Eosinophils 0 10^3/ul (0-0.6); ABS Lymphocytes 1.7 10^3/ul (1.0-4.8); ABS Monocytes 0.5 10^3/ul (0-0.8); ABS Neutrophils 4.4 10^3/ul (1.5-7.7); ABS Nucleated RBC 0 10^3/ul; Eosinophil % 0.6 %; Hematocrit 41 % (42-52); Hemoglobin 13.3 g/dl (14.0-18.0); Lymphocyte % 25.5 %; Mean Corpuscular HGB Conc 32 g/dl (31-36); Mean Corpuscular Hemoglobin 25 pg (27-31); Mean Corpuscular Volume 77 fL (80-94); Mean Platelet Volume 8.4 fL (7.4-10.4); Nucleated Red Blood Cells % 0; Platelet Count 241 10^3/ul (150-450); Red Blood Count 5.32 10^6/ul (4.00-5.40); Red Cell Distribution Width 21 % (10.5-15); White Blood Count 6.7 10^3/ul (3.5-10.8)
[2018-11-17 11:47] LABS: Albumin 4.3 g/dL (3.2-5.2); Albumin/Globulin Ratio 1.7 (1-3); BUN/Creatinine Ratio 11.7 (8-20); C Reactive Protein 12.66 mg/L (<8.01); Calcium 9.7 mg/dL (8.6-10.3); EGFR Non-African American 49.6 (>60); Globulin 2.5 g/dL (2-4); Magnesium 1.9 mg/dL (1.9-2.7); Potassium 4.2 mmol/L (3.5-5.0); Total Bilirubin 0.3 mg/dL (0.2-1.0); Total Protein 6.8 g/dL (6.4-8.9)
[2018-11-17] MEDS ORDERED: Iodixanol* (CONTRAST) 320 MG/ML 100 ML SDV IV ONE (11:57)
[2018-11-17 13:03] VITALS: BP 134/97
== END 2018-11-17 13:03 | disposition home or self-care (01) ==
LOC: ED 08:14
DX: R11.2 Nausea with vomiting, unspecified (principal); R19.7 Diarrhea, unspecified; F17.210 Nicotine dependence, cigarettes, uncomplicated; E11.8 Type 2 diabetes mellitus with unspecified complications; Z79.84 Long term (current) use of oral hypoglycemic drugs; F41.9 Anxiety disorder, unspecified; Z87.442 Personal history of urinary calculi; R10.814 Left lower quadrant abdominal tenderness; R10.813 Right lower quadrant abdominal tenderness
CPT/HCPCS: 36415; 74177; 80053; 81003; 82150; 82550; 83605; 83690; 83735; 85025; 86140; 96361; 96365; 96375; 99284; J2270; J2405; Q9967